=== PATIENT | male | born 1995 | race Caucasian/White ===

== ENCOUNTER → 2022-08-15 09:12 | Outpatient (BNVA) | payer BC, SELFPAY | PROVIDERS: Visit Provider Nurse Practitioner Family | DX: Z13.89 Encounter for screening for other disorder (principal) ==

== ENCOUNTER 2024-03-17 08:32 | Outpatient (AMB) | payer OTHER, SELFPAY ==
--- NOTE | 2024-03-17 08:22 | MHC.PC.OV ---
Vital Signs 03/17/24 08:39 Height 5 ft 9.29 in Weight 210 lb BMI 30.7 BP 112/80 Blood Pressure Location Rt brachial Position Sitting Respiration 16 Pulse 70 Pulse Source Pulse Oximeter Temp 97.8 F Temp Source Oral Pulse Oximetry (%) 99 Oxygen Delivery Method Room Air Intake Visit Reasons: ESTABLISH CARE Intake Note: New patient visit. Dry Sander Required: No Allergies No Known Allergies Allergy (Verified 03/17/24 08:22) Medication List - Last Reconciled 03/17/24 by LEIGHTON Vu Tobacco use date assessed: 03/17/24 Dental Screening Dental Screen Date: 03/17/24 Did you have a dental visit in the last 12 months?: No Did you have a dental problem in the last 6 months where you did not have access to dental care?: No Was dental information given to patient?: Patient has dentist HPI HPI Comments History of Present Illness Details 28-year-old male with migraine with aura (normal brain MRI 2021) generalized anxiety disorder, major depressive disorder, L3-L4 disc herniation [2019 s.p work injury], ADHD Status post wisdom teeth extraction, right thumb lac repair Hospital: [facility] 2019 back injury Social: 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 New patient. Medical records available to me today reviewed. ADHD was on focalin during childhood. Stopped this in high school. Was losing weight, this was the reason it was stopped. Does not recall any other meds for ADHD. Would like to restart as he is going back to school. Brings with him today the full psychiatrist assessment which was reviewed (done in 2007). MDD/BEATRIZ: denies any sx. Not active in counseling. This was situational. Migraines: well controlled. Thought related to job. Not taking any meds, no longer ffd by Neuro. Optho: Vision good, no corrective lenses. GI: no concerns Skin: dry skin right foot, present for months. Tried OTC tx w/o remedy. 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 Unsure of the details. Denies any current issues. Plan: Screening labs today. Include a urine toxicology, which was negative, we will restart Focalin XR 10mg and titrate to effect. Does not feel he needs meds for BEATRIZ or MDD, nor counseling. Does not need Neuro or Heme f/u @ this time. Topical steroid cream to skin on R foot PRN. If no improvement, consider Derm referral. Return to office in 4 weeks to follow up Focalin, sooner as needed PFSH Medical History (Updated 03/17/24 @ 12:43 by Ludy Butterfield END STAPLER-) Anxiety Depression Sleep difficulties Surgical History [place] teeth extracted History of circumcision Family History (Updated 03/17/24 @ 09:26 by Ana Jolly CMA) Mother Allergies Migraine Asthma Cardiovascular disease Clotting disorder Father Hodgkin disease Hemochromatosis Family/Other No problems noted. 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 1. Little interest or pleasure in doing things: more than half the days 2. Feeling down, depressed, or hopeless: not at all 3. Trouble falling or staying asleep, or sleeping too much: more than half the days 4. Feeling tired or having little energy: more than half the days 5. Poor appetite or overeating: several days 6. Feeling bad about yourself - or that you are a failure or have let yourself or your family down: not at all 7. Trouble concentrating on things, such as reading the newspaper or watching television: nearly every day 8. Moving or speaking so slowly that other people could have noticed. Or the opposite - being so fidgety or restless that you have been moving around a lot more than usual: not at all 9. Thoughts that you would be better off or of hurting yourself in some way: not at all Total score: 10 Depression Screening Interpretation: Positive Depression Screening Follow-up: Existing condition Depression Screening Done: Yes 92802 - PHQ-9 Billing: Yes Source: Developed by Drs. Jaime Estrella, Luisa Pickett, Wiley Figueroa and colleagues, with an educational ousmane from [employer]. Thrive Questionnaire Date Thrive assessed: 03/17/24 I am a: Patient What is your living situation today?: I have a steady place to live Within the past 12 months, did the food you bought not last and you didn't have the money to get more?: Never true Within the past 12 months, did you worry whether your food would run out before you got money to buy more?: Sometimes True Do you have trouble paying for medicines?: No Do you have trouble getting transportation to medical appointments?: No Do you have trouble paying your heating and electricity bill?: No Do you have trouble taking care of your child, family member or friend?: No Do you have trouble with day-to-day activities such as bathing, preparing meals, shopping, managing finances, etc.?: No Are you currently unemployed and looking for a job?: No Are you interested in more education?: Yes Please select the resources that you would like help with: Education Currently or been in a relationship where the following occur: No concerns reported THRIVE Score: 1 AUDIT C Alcohol Use Questionnaire (AUDIT-C) 1. How often do you have a drink containing alcohol?: 2-3 times a week 2. How many drinks containing alcohol do you have on a typical day when you are drinking?: 3 or 4 3. How often do you have six or more drinks on one occasion?: Less than monthly (Once every six months) Total Score: 5 Score Reviewed/Action Taken: Yes BEATRIZ-7 AMB Questionnaire BEATRIZ-7 Date BEATRIZ - 7 assessed: 03/17/24 Feeling nervous, anxious, or on edge: 1 = Several days Not being able to stop or control worryin = Not at all Worrying too much about different things: 0 = Not at all Trouble relaxin = More than half the days Being so restless that it is hard to sit still: 1 = Several days Becoming easily annoyed or irritable: 0 = Not at all Feeling afraid as if something awful might happen: 0 = Not at all Total BEATRIZ-7 score (0-4 normal; 5-9 mild; 10-14 moderate; 15-21 severe): 4 Source: Developed by Drs. Jaime Estrella, Luisa Pickett, Wiley Figueroa and colleagues, with an educational ousmane from [employer]. BEATRIZ-7 Assessment Billing BEATRIZ-7 Assessment Tool: BEATRIZ-7 Assessment 08834 Physical exam (Primary Care) Vital Signs: Last Vital Signs Temp 97.8 F 03/17/24 08:39 Pulse 70 03/17/24 08:39 Resp 16 03/17/24 08:39 BP 112/80 03/17/24 08:39 Pulse Ox 99 03/17/24 08:39 Oxygen Delivery Method Room Air 03/17/24 08:39 BMI result Body Mass Index 30.7 BMI Assessment/Plan discussion: High BMI High, discussed plan: lifestyle Tobacco/Smoking Status: Tobacco use Status Tobacco use date assessed 03/17/24 03/17/24 08:24 Patient Tobacco Use Status Never used Tobacco 03/17/24 08:24 e-Cigarette/Vaping Use Never Used 03/17/24 08:24 PHQ-9: PHQ-9 Score PHQ-9: Total score 10 03/17/24 09:26 Depression Screening Interpretation: Positive Depression Screening Follow-up: Existing condition Thrive Assessment: Date of Thrive Assessment Date Thrive assessed 03/17/24 03/17/24 09:26 Currently or been in a relationship where the following occur: No concerns reported Const Other: General: Well developed, well nourished, in no acute distress. Appears stated age. Head: Normocephalic, atraumatic. Eyes: Pupils are equal, round and reactive to light and accommodation. Conjunctivae are clear. Vision grossly normal. Ears: TMs clear AU, EACS WNL Nose: Patent, without discharge. Mouth: There are no ulcers or lesions noted. No inflammation, no post nasal drip, no plaques nor exudates. Neck: Supple, no adenopathy or thyromegaly. Lungs: Clear to auscultation bilaterally. No rales, rhonchi or wheeze noted. Good air flow in all gaspar. Heart: Regular rate and rhythm. No murmurs, click, rubs or gallops are noted. Abdomen: Bowel sounds present in all quadrants. The abdomen is soft, nontender, with no masses or organomegaly noted. No hernias are noted. Musculoskeletal: Joints are nontender, without swelling, redness, or effusions. Range of motion is observed to be normal. Pulses: Peripheral pulses are equal and palpable bilaterally. Extremities: No clubbing, cyanosis nor edema is noted. Neurologic: Gait and station normal. Cranial Nerves 2-12 intact. Motor strength grossly symmetrical and intact. No sensory loss. Balance normal. Skin: No ulcers, or lesions noted. Turgor is good. Skin color is good. Hair and nails are without abnormalities. Dorsum of right foot is a dry skin patch, similar skin patch noted on the medial aspect of the anterior ankle Psych: Normal eye contact, affect and mood appropriate, and normal interactions. Patient is alert and appropriate to context. Results Reviewed Results Reviewed: RUN: 03/17/24 1232 PAGE 1 [facility] [address] [place] [id number] Dock Clerk: Tez Tolliver M.D. Specimen Inquiry Name: Beka Chan Age/Sex: 28/M : 1995 Unit#: [id number] Attend Dr: Ludy Butterfield Re03/17/24 Status: REG REF Location: [facility] Disch: SPEC : [id number] SANDY: 03/17/24 STATUS: COMP REQ : [id number] RECD: 03/17/24-[address]: Ludy Butterfield COMP: 03/17/24-1223 ENTERED: 03/17/24 [facility] DR: ORDERED: Ur Drug Scrn Test Result Flag Reference Opiates, Ur Not Detected Not Detect Opiate cut-off is 300 ng/mL. Positive results are unconfirmed and should not be used for non-medical purposes. Barbiturate, Ur Not Detected Not Detect Barbiturate cut-off is 200 ng/mL. Positive results are unconfirmed and should not be used for non-medical purposes. PCP, Ur Not Detected Not Detect Phencyclidine cut-off is 25 ng/mL. Positive results are unconfirmed and should not be used for non-medical purposes. Amphetamine,Ur Not Detected Not Detect Amphetamine cut-off is 1000 ng/mL. Positive results are unconfirmed and should not be used for non-medical purposes. Benzodiazep,Ur Not Detected Not Detect Benzodiazepine cut-off is 200 ng/mL. Positive results are unconfirmed and should not be used for non-medical purposes. Cocaine, Ur Not Detected Not Detect Cocaine cut-off is 300 ng/mL. Positive results are unconfirmed and should not be used for non-medical purposes. Cannabinoid, Ur Not Detected Not Detect Cannabinoid cut-off is 50 ng/mL. Positive results are unconfirmed and should not be used for non-medical purposes. Ur Meth Scrn Not Detected Not Detect ng/mL Methadone cut-off is 300 ng/mL. Positive results are unconfirmed and should not be used for non-medical purposes. Fentanyl, ur Not Detected Not Detect Fentanyl cut-off is 1 ng/mL. Positive results are unconfirmed and should not be used for non-medical purposes. Oxycodone Urine Not Detected Not Detect ng/mL Oxycodone cut-off is 100 ng/mL. Positive results are unconfirmed and should not be used for non-medical purposes. Buprenorph Scr Not Detected Not Detect ng/mL Buprenorphine cut-off is 5 ng/mL. Positive results are unconfirmed and should not be used for non-medical purposes. END OF REPORT Assessment and Plan Assessment & Plan (1) Encounter for general adult medical examination without abnormal findings: Code(s): Z00.00 - Encounter for general adult medical examination without abnormal findings (2) BEATRIZ (generalized anxiety disorder): Code(s): F41.1 - Generalized anxiety disorder (3) MDD (major depressive disorder), recurrent episode: Code(s): F33.9 - Major depressive disorder, recurrent, unspecified Qualifiers: Major depression episode severity: mild Qualified Code(s): F33.0 - Major depressive disorder, recurrent, mild (4) Obesity (BMI 30-39.9): Code(s): E66.9 - Obesity, unspecified (5) Encounter for drug screening: Code(s): Z02.83 - Encounter for blood-alcohol and blood-drug test (6) ADHD: Comment: Neuropsych eval 2007 Code(s): F90.9 - Attention-deficit hyperactivity disorder, unspecified type Qualifiers: Attention deficit-hyperactivity disorder type: combined inattentive-hyperactive Qualified Code(s): F90.2 - Attention-deficit hyperactivity disorder, combined type (7) Migraine with aura: Comment: Migraine w/ brainstem aura MRI MRA 2021 WNL Code(s): G43.109 - Migraine with aura, not intractable, without status migrainosus Qualifiers: Status migrainosus presence: without status migrainosus Intractability: not intractable Qualified Code(s): G43.109 - Migraine with aura, not intractable, without status migrainosus (8) Dry skin dermatitis: Code(s): L85.3 - Xerosis cutis Orders: Orders Comprehensive [place]. Panel Fast Today Z00.00 - Encounter for general adult medical examination without abnormal findings Lipid Panel Today Z00.00 - Encounter for general adult medical examination without abnormal findings Complete Blood Count no Diff Today Z00.00 - Encounter for general adult medical examination without abnormal findings Vitamin B12 and Folate Today Z00.00 - Encounter for general adult medical examination without abnormal findings IRON PROFILE Today Z00.00 - Encounter for general adult medical examination without abnormal findings Hemoglobin A1c Today Z00.00 - Encounter for general adult medical examination without abnormal findings TSH reflex Free T4 Today Z00.00 - Encounter for general adult medical examination without abnormal findings Drug Screen Urine Today Z02.83 - Encounter for blood-alcohol and blood-drug test Medications: New dexmethylphenidate ER (Focalin XR) Partial Fill upon patient request. 10 mg PO DAILY 30 caps 0RF hydrocortisone 2.5% 1 appl topical BID PRN 28 grams 1RF skin irritation Patient Instructions: Walk-In Care (Urgent Care): We Make it Easy Walk-in for urgent medical issues such as: ? Seasonal Allergies ? Insect Bites ? Cough ? Diarrhea ? Acute Asthma Attacks ? Back, Knee or Joint Pain ? Ear Infection ? Fever without a Rash ? Headaches ? Nausea ? [place] Eye, Rash or Skin Irritation ? Sore Throat ? Sports Physicals ? Vomiting Most insurances are accepted. Patients do not need to be part of the [facility] to seek care at the walk-in clinic. Locations [address] [place] [place] [address] ? [phone] [facility] Walk-In Care in [place] provides services to ages 18 and over. Open Sunday-Sunday: 8 a.m. to 5 p.m. and Sunday: 9 a.m. to 3 p.m.* *Hours may vary due to staffing availability. To confirm Walk-In Care hours in [place], please call [phone]. [address] [place] [address] ? [phone] [facility] Walk-In Care in [place] provides services to ages 12 and over. Open Sunday-Sunday: 8 a.m. to 5 p.m. Hours may vary due to staffing availability. To confirm Walk-In Care hours in [place], please call [phone]. LABORATORY SERVICES: [facility] ? Primary Location [address] [place] [address] Sunday through Sunday 6:00 AM ? 5:00 PM Sunday 7:00 AM ? 11:00 AM* [phone] The [facility] is centrally located near the front entrance of the [facility] for easy outpatient access. Convenient parking is provided for outpatients. *Hours may vary due to staffing availability. To confirm Laboratory hours for any location, please call [phone]. Offsite Location For your convenience, we offer offsite laboratory draw stations at the following locations: [address] [place] [address] ? [address], [address] Sunday through Sunday 7:30 AM ? 1:00 PM* [phone] *Hours may vary due to staffing availability. To confirm Laboratory hours for any location, please call [phone]. [place] ? [address] Sunday through Sunday 6:00 AM ? 3:30 PM* Sunday 6:30 AM ? 3 PM* [phone] *Hours may vary due to staffing availability. To confirm Laboratory hours for any location, please call [phone] [place] [address] Sunday through Sunday 7:30 AM ? 4:00 PM* [phone] *Hours may vary due to staffing availability. To confirm Laboratory hours for any location, please call [phone] [place] [address] Sunday through 9:00 AM ? 4:00 PM* *Hours may vary due to staffing availability. To confirm Laboratory hours for any location, please call [phone]. Appointments are not necessary. Walk-ins are welcome. Like all the departments throughout the [facility], our Lab undergoes frequent reviews to ensure the quality and accuracy of test results, and our staff takes special pride in its status as a nationally accredited facility. Patient Portal: ONE PATIENT. ONE RECORD. BETTER CARE. [facility] has a fully integrated, cutting-edge mobile electronic health information system that has revolutionized the way we care for our patients and manage our organization. This system improves communication and coordination enabling us to provide safe, higher-quality care, and an overall positive experience for staff and patients. Our first priority, as always, is to deliver the highest quality care possible. The system is running in the background supporting that priority. This portal is for all [facility] services and practices. If you are experiencing any technical difficulties with enrolling or logging into the Patient Portal please complete the [facility] Technical Support Form. [facility] now offers a new secure on-line interactive tool for patients to review their health information ? ?Patient Portal. This interactive web portal will enable patients and their families to take an active role in their care by providing easy, secure access to their health information via the internet. The Patient Portal provides patients with instant access to their health information, including laboratory results, medications, allergies, demographic information, visit history, and more. In addition to managing their own care, parents and health care proxies with authorized consent will appreciate the ability to access the records of those individuals for whom they provide care. Please note: if you wish to gain access (Proxy) to another patient?s portal, you will be required to come to the Medical Records Department in person at [facility]. Both the patient giving proxy access and the proxy will need to provide photo identification and complete the appropriate authorization. The Patient Portal also allows track their appointments online. The [facility] Patient Portal also saves patients time by allowing them to submit updates to their demographic and contact information prior to their visits. Portal email notifications will also alert patients to any new activity on their portal, such as test results and new appointments. In order to initially enroll in the [facility] Patient Portal, you will need to enter some required information including the following: your [facility] Medical Record number your personal home email address name date of Please note: In order to enroll in the [facility] Patient Portal, we need to have your email address on file in your electronic medical record. ?The email address needs to be specific for one person (yourself) in order for your Portal enrollment to be successful. ?You can update your email address in person with our Registration staff when you are registering for a hospital visit. ?Otherwise, you will need to come to the Health Information Management (Medical Records) Department at [facility]. ?We are open from Sunday ? Sunday from 7:30 a.m. ? 4:30 p.m. ?You will be required to present a photo id. Once you have successfully enrolled in the Patient Portal, you will receive a one-time user id and password for the Portal, sent to your email address. ?This will allow you to log into the Patient Portal within 99 hrs and reset your own logon id and password, and define personal security questions. ?Once your permanent login and password have been set, you can log into the [facility] Patient Portal at any time via the blue button above or from the Portal Logon button on any page of the [facility] website. [facility] encourage all of our patients to enroll in Patient Portal as it presents a valuable opportunity for patients and their families to actively participate in their care and stay healthy Welcome to [facility]. ?We look forward to working with you. Health screenings for men ages 40 to 64 You should visit your health care provider regularly, even if you feel healthy. The purpose of these visits is to: Screen for medical issues Assess your risk for future medical problems Encourage a healthy lifestyle Update vaccinations and other preventive care services Help you get to know your provider in case of an illness Information Even if you feel fine, you should still see your provider for regular checkups. These visits can help you avoid problems in the future. For example, the only way to find out if you have high blood pressure is to have it checked regularly. High blood sugar and high cholesterol level also may not have any symptoms in the early stages. Simple blood tests can check for these conditions. There are specific times when you should see your provider or receive specific health screenings. The [place] Preventive Services Task Force publishes a list of recommended screenings. Below are screening guidelines for men ages 40 to 64. BLOOD PRESSURE SCREENING Have your blood pressure checked at least once every year. Watch for blood pressure screenings in your area. Ask your provider if you can stop in to have your blood pressure checked. Ask your provider if you need your blood pressure checked more often if: You have diabetes, heart disease, kidney problems, or are overweight or have certain other health conditions You have a first-degree relative with high blood pressure You are Black Your blood pressure top number is from 120 to 129 mm Hg, or the bottom number is from 70 to 79 mm Hg If the top number is 130 mm Hg or greater or the bottom number is 80 mm Hg or greater, this is considered stage 1 hypertension. Schedule an appointment with your provider to learn how you can lower your blood pressure. Effects of age on blood pressure CHOLESTEROL SCREENING Cholesterol screening should begin at age 35 for men with no known risk factors for coronary heart disease. Repeat cholesterol screening should take place: Every 5 years for men with normal cholesterol levels More often if changes occur in lifestyle (including weight gain and diet) More often if you have diabetes, heart disease, kidney problems, or certain other conditions COLORECTAL CANCER SCREENING If you are under age 45, talk to your provider about getting screened. You may need to be screened if you have a strong family history of colon cancer or polyps. Screening may also be considered if you have risk factors such as a history of inflammatory bowel disease or polyps. If you are age 45 to 75, you should be screened for colorectal cancer. There are several screening tests available: A stool-based fecal occult blood (gFOBT) or fecal immunochemical test (FIT) every year A stool sDNA test every 1 to 3 years Flexible sigmoidoscopy every 5 years or every 10 years with stool testing FIT done every year CT colonography (virtual colonoscopy) every 5 years Colonoscopy every 10 years You may need a colonoscopy more often if you have risk factors for colorectal cancer, such as: Ulcerative colitis A personal or family history of colorectal cancer A history of growths in your colon called adenomatous polyps DENTAL EXAM Go to the dentist once or twice every year for an exam and cleaning. Your dentist will evaluate if you have a need for more frequent visits. DIABETES SCREENING All adults who do not have risk factors for diabetes should be screened starting at age 35 and repeated every 3 years. If you have other risk factors for diabetes, such as a first degree relative with diabetes, overweight or obesity, high blood pressure, prediabetes, or a history of heart disease, you may be tested more often. If you are overweight and have other risk factors, such as high blood pressure and are planning to become , screening is recommended. EYE EXAM Have an eye exam every 2 to 4 years ages 40 to 54 and every 1 to 3 years ages 55 to 64. Your provider may recommend more frequent eye exams if you have vision problems or glaucoma risk. Have an eye exam that includes an examination of your retina (back of your eye) at least every year if you have diabetes. IMMUNIZATIONS Commonly needed vaccines include: Flu shot: get one every year COVID-19 vaccine: ask your provider what is best for you Tetanus-diphtheria and acellular pertussis (Tdap) vaccine: have as one of your tetanus-diphtheria vaccines if you did not receive it as an adolescent Tetanus-diphtheria: have a booster (or Tdap) every 10 years Varicella vaccine: receive 2 doses if you never had chickenpox or the varicella vaccine and were born in 1979 or after Hepatitis B vaccine: receive 2, 3, or 4 doses, depending on your exact circumstances, if you did not receive these as a child or adolescent, until age 59 Shingles (herpes zoster) vaccine: at or after age 50 Ask your provider if you should receive other immunizations, especially if you have certain medical conditions, such as diabetes or are at increased risk for some diseases such as pneumonia. INFECTIOUS DISEASE SCREENING Screening for hepatitis C: all adults ages 18 to 79 should get a one-time test for hepatitis C. Screening for human immunodeficiency virus (HIV): all people ages 15 to 65 should get a one-time test for HIV. Depending on your lifestyle and medical history, you may need to be screened for infections such as syphilis, chlamydia, and other infections. LUNG CANCER SCREENING You should have an annual screening for lung cancer with low-dose computed tomography (LDCT) if: You are age 50 to 80 years AND You have a 20 pack-year smoking history AND You currently smoke or have quit within the past 15 years OSTEOPOROSIS SCREENING If you are age 50 to 64 and have risk factors for osteoporosis, you should discuss screening with your provider. Risk factors can include long-term steroid use, low body weight, smoking, heavy alcohol use, having a fracture after age 50, or a family history of hip fracture or osteoporosis. Osteoporosis PHYSICAL EXAM All adults should visit their provider from time to time, even if they are healthy. The purpose of these visits is to: Screen for diseases Assess risk of future medical problems Encourage a healthy lifestyle Update vaccinations and other preventive care services Maintain a relationship with a provider in case of an illness Your height, weight, and body mass index (BMI) should be checked at every exam. During your exam, your provider may ask you about: Depression and anxiety Diet and exercise Alcohol and tobacco use Safety, such as use of seat belts and smoke detectors Your medicines and risk for interactions PROSTATE CANCER SCREENING If you're 55 through 69 years old, before having the test, talk to your provider about the pros and cons of having a PSA test. Ask about: Whether screening decreases your chance of dying from prostate cancer. Whether there is any harm from prostate cancer screening, such as side effects from testing or overtreatment of cancer when discovered. Whether you have a higher risk of prostate cancer than others. If you are age 55 or younger, screening is not generally recommended. You should talk with your provider about if you have a higher risk for prostate cancer. Risk factors include: Having a family history of prostate cancer (especially a brother or father) Being If you choose to be tested, the PSA blood test is repeated over time (yearly or less often), though the best frequency is not known. Prostate examinations are no longer routinely done on men with no symptoms. Prostate cancer SKIN EXAM Your provider may check your skin for signs of skin cancer, especially if you're at high risk. People at high risk include those who have had skin cancer before, have close relatives with skin cancer, or have a weakened immune system. TESTICULAR EXAM The [place] Preventive Services Task Force (USPSTF) now recommends against performing testicular self-exams. Doing testicular self-exams has been shown to have little to no benefit. Patient is aware they are being prescribed a controlled substance. They were educated that this medication does require routine monthly office visits to monitor weight, blood pressure, heart rate and to screen for any signs of abuse or misuse. They were educated that they may be subject to random pill counts and/or U tox screenings. The prescription drug monitoring program we will be monitored at each visit to further screen for signs of abuse or misuse to include filling prescriptions at other physician's offices. The patient should maintain prescription refills of the same local pharmacy and advised the provider of any changes immediately. If at any time there is a concern for abuse or misuse or if there are any signs of side effects such as elevated blood pressure, elevated heart rate or weight loss patient is made aware that this medication will be discontinued. The patient is aware of the above and is willing to proceed. Coding Level of Care Code New Pt Prev Care 18-39yr(73458 Diagnoses Encounter for general adult medical examination without abnormal findings Z00.00 BEATRIZ (generalized anxiety disorder) F41.1 Mild episode of recurrent major depressive disorder F33.0 Major depression episode severity: mild Obesity (BMI 30-39.9) E66.9 Encounter for drug screening Z02.83 Attention deficit hyperactivity disorder (ADHD), combined type F90.2 Attention deficit-hyperactivity disorder type: combined inattentive-hyperactive Migraine with aura and without status migrainosus, not intractable G43.109 Status migrainosus presence: without status migrainosus Intractability: not intractable Dry skin dermatitis L85.3 Additional Codes BEATRIZ-7 Assessment Billing - BEATRIZ-7 Assessment Tool: BEATRIZ-7 Assessment 38435 ([id number])
[2024-03-17 08:39] VITALS: BP 112/80; PULSE 70; RESP 16; TEMP 36.6; O2SAT 99; BMI 30.7
== END 2024-03-17 09:36 | disposition home or self-care (01) ==
PROVIDERS: PCP Nurse Practitioner Family; Visit Provider Nurse Practitioner Family
DX: Z00.00 Encounter for general adult medical examination without abnormal findings (principal); F33.0 Major depressive disorder, recurrent, mild; E66.9 Obesity, unspecified; Z68.30 Body mass index [BMI] 30.0-30.9, adult; F41.1 Generalized anxiety disorder; Z02.83 Encounter for blood-alcohol and blood-drug test; F90.2 Attention-deficit hyperactivity disorder, combined type; G43.109 Migraine with aura, not intractable, without status migrainosus; L85.3 Xerosis cutis
CPT/HCPCS: 99385

== ENCOUNTER 2024-03-17 09:15 | Outpatient (REF) | payer OTHER, SELFPAY ==
[2024-03-17 11:32] LABS: Hematocrit 45.8 % (42.0-52.0); Hemoglobin 16.2 g/dl (14.0-18.0); Mean Corpuscular HGB Conc 35.4 g/dl (31.0-36.0); Mean Corpuscular Hemoglobin 30.6 pg (27.0-33.0); Mean Corpuscular Volume 86.6 fL (80.0-98.0); Mean Platelet Volume 11.8 fL (9.4-12.4); Platelet Count 214 X10*3/uL (160-400); Red Blood Count 5.29 X10*6/uL (4.60-5.80); Red Cell Distribution Width 12.2 % (11.0-16.0); White Blood Count 6.9 X10*3/uL (4.8-10.8)
[2024-03-17 11:48] LABS: Estimated Average Glucose 100 mg/dL; Hemoglobin A1c % 5.1 % (<6.0)
[2024-03-17 12:02] LABS: Alanine Aminotransferase 51 U/L (0-40); Albumin Level 4.7 g/dL (3.5-5.0); Alkaline Phosphatase 78 U/L (39-117); Anion Gap 11 (12-20); Aspartate Amino Transferase 25 U/L (5-37); Bilirubin Total 0.6 mg/dL (0.0-1.0); Blood Urea Nitrogen 10 mg/dL (9-16); Calcium 9.6 mg/dL (8.4-10.2); Carbon Dioxide 27 mmol/L (22-29); Chloride 105 mmol/L (96-108); Cholesterol 146 mg/dL (<200); Estimated Glomerular Filt Rate > 60; Glucose Fasting 114 mg/dL (60-99); HDL Cholesterol 43 mg/dL (>40); Iron 93 mcg/dL (45-160); LDL Cholesterol Calculated 84 mg/dL (<100); Percent Iron Saturation 30 % (15-50); Potassium 4.1 mmol/L (3.3-5.1); Sodium 139 mmol/L (135-145); Total Iron Binding Capacity 309 mcg/dL (228-428); Total Protein 7.4 g/dL (6.5-8.0); Triglycerides 99 mg/dL (<150); Unsaturated Iron Binding 216 ug/dL
[2024-03-17 12:08] LABS: TSH reflex Free T4 1.76 uIU/mL (0.32-4.0)
[2024-03-17 12:20] LABS: Folate 6.7 ng/mL (> or = 4.0); Vitamin B12 359 pg/mL (200-900)
[2024-03-17 12:23] LABS: Amphetamine Screen Urine Not Detected (Not Detect); Barbiturates, Urine Not Detected (Not Detect); Benzodiazepines Screen Urine Not Detected (Not Detect); Buprenorphine Scr Not Detected (Not Detect); Cannabinoid Screen Urine Not Detected (Not Detect); Cocaine Screen Urine Not Detected (Not Detect); Fentanyl, urine Not Detected (Not Detect); Methadone Screen, Urine Not Detected (Not Detect); Opiate Screen Urine Not Detected (Not Detect); Oxycodone Screen Urine Not Detected (Not Detect); Phencyclidine Screen Urine Not Detected (Not Detect)
== END 2024-03-17 09:16 | disposition home or self-care (01) ==
LOC: HO.WFDLDS 09:15
PROVIDERS: Visit Provider Nurse Practitioner Family
DX: Z00.00 Encounter for general adult medical examination without abnormal findings (principal); Z02.83 Encounter for blood-alcohol and blood-drug test
CPT/HCPCS: 80053; 80061; 80307; 82607; 82746; 83036; 83540; 84443; 85027

== ENCOUNTER 2024-04-11 08:41 | Outpatient (AMB) | payer OTHER, SELFPAY ==
--- NOTE | 2024-04-11 08:42 | MHC.PC.OV ---
Vital Signs 04/11/24 08:46 Height 5 ft 10 in Weight 211 lb 6 oz BMI 30.3 BP 122/72 Blood Pressure Location Rt brachial Position Sitting Respiration 15 Pulse 66 Pulse Source Pulse Oximeter Pulse Oximetry (%) 97 Oxygen Delivery Method Room Air Intake Visit Reasons: follow up Intake Note: follow up on medication Allergies No Known Allergies Allergy (Verified 04/11/24 09:05) Medication List - Last Reconciled 04/11/24 by ODMINIK Vu-NENA dexmethylphenidate ER (Focalin XR) 10 mg PO DAILY hydrocortisone 2.5% 1 appl topical BID PRN Tobacco use date assessed: 03/17/24 Dental Screening Dental Screen Date: 03/17/24 HPI HPI Comments History of Present Illness Details 28-year-old male with migraine with aura (normal brain MRI 2021) generalized anxiety disorder, major depressive disorder, L3-L4 disc herniation [2019 s.p work injury], ADHD Status post wisdom teeth extraction, right thumb lac repair Hospital: [facility] 2019 back injury Social: 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 taking every day in the AM, around [id number]. Helping him focus for a few hours. Feels wears off around [id number]. Sleeping well. Appetite good. Wt stable. No uptic in anxiety. Exam: Awake alert NAD RRR LS CTAB Mood and affect approriate Plan: Increase focalin from 10mg to 20mg QD. Return to office in 4 weeks to follow up Focalin increase, sooner as needed. [facility] Medical History (Updated 03/17/24 @ 12:43 by DOMINIK Vu-NENA) Anxiety Depression Sleep difficulties Surgical History [place] teeth extracted History of circumcision Family History (Updated 03/17/24 @ 09:26 by Ana Jolly CMA) Mother Allergies Migraine Asthma Cardiovascular disease Clotting disorder Father Hodgkin disease Hemochromatosis Family/Other No problems noted. 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 Jaime Estrella, Luisa Pickett, Wiley Figueroa and colleagues, with an educational ousmane from [employer]. Physical exam (Primary Care) Vital Signs: Last Vital Signs Pulse 66 04/11/24 08:46 Resp 15 04/11/24 08:46 BP 122/72 04/11/24 08:46 Pulse Ox 97 04/11/24 08:46 Oxygen Delivery Method Room Air 04/11/24 08:46 BMI result Body Mass Index 30.3 Tobacco/Smoking Status: Tobacco use Status Tobacco use date assessed 03/17/24 04/11/24 08:47 Patient Tobacco Use Status Never used Tobacco 04/11/24 08:47 e-Cigarette/Vaping Use Never Used 04/11/24 08:47 Thrive Assessment: Date of Thrive Assessment Date Thrive assessed 03/17/24 04/11/24 08:47 Assessment and Plan Assessment & Plan (1) ADHD: Comment: Neuropsych evthomas 2007 Code(s): F90.9 - Attention-deficit hyperactivity disorder, unspecified type Qualifiers: Attention deficit-hyperactivity disorder type: combined inattentive-hyperactive Qualified Code(s): F90.2 - Attention-deficit hyperactivity disorder, combined type Medications: New dexmethylphenidate ER (Focalin XR) Partial Fill upon patient request. 20 mg PO DAILY 30 caps 0RF Discontinued dexmethylphenidate ER (Focalin XR) Partial Fill upon patient request. Discontinued Reason: Doctor's Order 10 mg PO DAILY 30 caps 0RF Coding Level of Care Code Est Pt Level 3 (66132) Diagnoses Attention deficit hyperactivity disorder (ADHD), combined type F90.2 Attention deficit-hyperactivity disorder type: combined inattentive-hyperactive
[2024-04-11 08:46] VITALS: BP 122/72; PULSE 66; RESP 15; O2SAT 97; BMI 30.3
== END 2024-04-11 09:13 | disposition home or self-care (01) ==
PROVIDERS: PCP Nurse Practitioner Family; Visit Provider Nurse Practitioner Family
DX: F90.2 Attention-deficit hyperactivity disorder, combined type (principal)
CPT/HCPCS: 99213

== ENCOUNTER 2024-05-07 08:30 | Outpatient (AMB) | payer OTHER, SELFPAY ==
--- NOTE | 2024-05-07 08:33 | A.OFFPC_ITS ---
Vital Signs 05/07/24 08:39 Height 5 ft 10 in Weight 212 lb 8 oz BMI 30.5 BP 138/78 Blood Pressure Location Rt brachial Position Sitting Respiration 15 Pulse 90 Pulse Source Pulse Oximeter Pulse Oximetry (%) 96 Oxygen Delivery Method Room Air Intake Visit Reasons: 4-6 weeks 30min fu BED/BEATRIZ Intake Note: follow up Allergies No Known Allergies Allergy (Verified 05/07/24 09:14) Medication List - Last Reconciled 05/07/24 by DOMINIK Vu-NENA dexmethylphenidate ER (Focalin XR) 20 mg PO DAILY hydrocortisone 2.5% 1 appl topical BID PRN Tobacco use date assessed: 03/17/24 Dental Screening Dental Screen Date: 03/17/24 HPI HPI Comments History of Present Illness Details 28-year-old male with migraine with aura (normal brain MRI 2021) generalized anxiety disorder, major depressive disorder, L3-L4 disc herniation [2019 s.p work injury], ADHD Here today for 4 week fu ADHD after increasing Focalin XR He is taking 20 mg daily in the morning. While he does state that it works better, he continues to state that it does not last long enough, although it does last longer than the 10 mg. He feels like it wears off around 16:00 to 17:00. He states that the benefits of taking this is that he feels very focused in his able to keep up with class work. He denies any side effects. Reports that his mood is stable. Denies any insomnia. Reports stable appetite. Exam: Awake alert NAD RRR LS CTAB Mood and affect approriate Plan: Increase Focalin XR from 20mg to 30mg. Ok to stop 20 now and start 30 if insurance allows. Do not take any more than 30mg/day RTO 1 month for recheck. This note is constructed using voice recognition software. While every effort has been made to ensure accuracy in java software architect, still errors may have been included Sometimes, these errors may affect the content or meaning of the given sentence . [facility] Medical History (Updated 03/17/24 @ 12:43 by DOMINIK Vu-NENA) Anxiety Depression Sleep difficulties Surgical History [place] teeth extracted History of circumcision Family History (Updated 08/05/24 @ 09:26 by Ana Jolly CMA) Mother Allergies Migraine Asthma Cardiovascular disease Clotting disorder Father Hodgkin disease Hemochromatosis Family/Other No problems noted. 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 1. Little interest or pleasure in doing things: not at all 2. Feeling down, depressed, or hopeless: not at all 3. Trouble falling or staying asleep, or sleeping too much: not at all 4. Feeling tired or having little energy: not at all 5. Poor appetite or overeating: several days 6. Feeling bad about yourself - or that you are a failure or have let yourself or your family down: not at all 7. Trouble concentrating on things, such as reading the newspaper or watching television: several days 8. Moving or speaking so slowly that other people could have noticed. Or the opposite - being so fidgety or restless that you have been moving around a lot more than usual: not at all 9. Thoughts that you would be better off or of hurting yourself in some way: not at all Total score: 2 37812 - PHQ-9 Billing: Yes Source: Developed by Drs. Jaime Estrella, Luisa Pickett, Wiley Figueroa and colleagues, with an educational ousmane from [employer]. Thrive Questionnaire Date Thrive assessed: 03/17/24 AUDIT C Alcohol Use Questionnaire (AUDIT-C) 1. How often do you have a drink containing alcohol?: 2-3 times a week 2. How many drinks containing alcohol do you have on a typical day when you are drinking?: 1 or 2 3. How often do you have six or more drinks on one occasion?: Never Total Score: 3 BEATRIZ-7 AMB Questionnaire BEATRIZ-7 Date BEATRIZ - 7 assessed: 05/07/24 Feeling nervous, anxious, or on edge: 0 = Not at all Not being able to stop or control worryin = Not at all Worrying too much about different things: 0 = Not at all Trouble relaxin = Several days Being so restless that it is hard to sit still: 0 = Not at all Becoming easily annoyed or irritable: 0 = Not at all Feeling afraid as if something awful might happen: 0 = Not at all Total BEATRIZ-7 score (0-4 normal; 5-9 mild; 10-14 moderate; 15-21 severe): 1 Source: Developed by Drs. Jaime Estrella, Luisa Pickett, Wiley Figueroa and colleagues, with an educational ousmane from [employer] App. BEATRIZ-7 Assessment Billing BEATRIZ-7 Assessment Tool: BEATRIZ-7 Assessment [id number] Physical exam (Primary Care) Vital Signs: Last Vital Signs Pulse 90 05/07/24 08:39 Resp 15 05/07/24 08:39 BP 138/78 05/07/24 08:39 Pulse Ox 96 05/07/24 08:39 Oxygen Delivery Method Room Air 05/07/24 08:39 BMI result Body Mass Index 30.5 Tobacco/Smoking Status: Tobacco use Status Tobacco use date assessed 03/17/24 05/07/24 08:34 Patient Tobacco Use Status Never used Tobacco 05/07/24 08:34 e-Cigarette/Vaping Use Never Used 05/07/24 08:34 PHQ-9: PHQ-9 Score PHQ-9: Total score 2 05/07/24 09:14 Thrive Assessment: Date of Thrive Assessment Date Thrive assessed 03/17/24 05/07/24 08:34 Assessment and Plan Assessment & Plan (1) ADHD: Comment: Neuropsych eval 2007 Code(s): F90.9 - Attention-deficit hyperactivity disorder, unspecified type Qualifiers: Attention deficit-hyperactivity disorder type: combined inattentive- hyperactive Qualified Code(s): F90.2 - Attention-deficit hyperactivity disorder, combined type (2) BEATRIZ (generalized anxiety disorder): Code(s): F41.1 - Generalized anxiety disorder (3) MDD (major depressive disorder), recurrent episode: Code(s): F33.9 - Major depressive disorder, recurrent, unspecified Qualifiers: Major depression episode severity: mild Qualified Code(s): F33.0 - Major depressive disorder, recurrent, mild Medications: New dexmethylphenidate ER (Focalin XR) Partial Fill upon patient request. 30 mg PO DAILY 30 caps 0RF Discontinued dexmethylphenidate ER (Focalin XR) Partial Fill upon patient request. Discontinued Reason: Doctor's Order 20 mg PO DAILY 30 caps 0RF Coding Level of Care Code Est Pt Level 3 (20702) Complex EM visit Add On G2211 Diagnoses Attention deficit hyperactivity disorder (ADHD), combined type F90.2 Attention deficit-hyperactivity disorder type: combined inattentive- hyperactive BEATRIZ (generalized anxiety disorder) F41.1 Mild episode of recurrent major depressive disorder F33.0 Major depression episode severity: mild Additional Codes BEATRIZ-7 Assessment Billing - BEATRIZ-7 Assessment Tool: BEATRIZ-7 Assessment 95856 ([id number])
[2024-05-07 08:39] VITALS: BP 138/78; PULSE 90; RESP 15; O2SAT 96; BMI 30.5
== END 2024-05-07 09:20 | disposition home or self-care (01) ==
PROVIDERS: PCP Nurse Practitioner Family; Visit Provider Nurse Practitioner Family
DX: F90.2 Attention-deficit hyperactivity disorder, combined type (principal); F41.1 Generalized anxiety disorder; F33.0 Major depressive disorder, recurrent, mild

== ENCOUNTER → 2024-05-07 08:30 | Outpatient (BNVA) | payer OTHER, SELFPAY | PROVIDERS: PCP Nurse Practitioner Family; Visit Provider Nurse Practitioner Family | DX: F90.2 Attention-deficit hyperactivity disorder, combined type (principal); F41.1 Generalized anxiety disorder; F33.0 Major depressive disorder, recurrent, mild | CPT/HCPCS: 96127; 99212 ==

== ENCOUNTER 2024-06-03 09:03 | Outpatient (AMB) | payer OTHER, SELFPAY ==
--- NOTE | 2024-06-03 09:04 | MHC.PC.OV ---
Vital Signs 06/03/24 09:13 Height 5 ft 10 in Weight 215 lb 2 oz BMI 30.9 BP 120/70 Blood Pressure Location Lt brachial Position Sitting Respiration 14 Pulse 63 Pulse Source Pulse Oximeter Pulse Oximetry (%) 98 Oxygen Delivery Method Room Air Intake Visit Reasons: 1 month med check Intake Note: one month med check Allergies No Known Allergies Allergy (Verified 06/03/24 09:26) Medication List - Last Reconciled 06/03/24 by DOMINIK Vu-NENA dexmethylphenidate ER (Focalin XR) 30 mg PO DAILY hydrocortisone 2.5% 1 appl topical BID PRN Tobacco use date assessed: 03/17/24 Dental Screening Dental Screen Date: 03/17/24 HPI HPI Comments History of Present Illness Details 29-year-old male with migraine with aura (normal brain MRI 2021) generalized anxiety disorder, major depressive disorder, L3-L4 disc herniation [2019 s.p work injury], ADHD Status post wisdom teeth extraction, right thumb lac repair Hospital: [facility] 2019 back injury Social: 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 Feels this is working very well. Able to maintain focus throughout the day. No longer feeling like it is wearing off. Sleeping well. Appetite good. Wt stable. No uptic in anxiety. Mood stable. Would like to cont same dose Exam: Awake alert NAD RRR LS CTAB Mood and affect approriate Plan: Cont focalin XR 30mg QD. Return to office in 3 mo for follow up Focalin, sooner PRN PFSH Medical History (Updated 03/17/24 @ 12:43 by DOMINIK Vu-NENA) Anxiety Depression Sleep difficulties Surgical History [place] teeth extracted History of circumcision Family History (Updated 03/17/24 @ 09:26 by Ana Jolly CMA) Mother Allergies Migraine Asthma Cardiovascular disease Clotting disorder Father Hodgkin disease Hemochromatosis Family/Other No problems noted. 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 1. Little interest or pleasure in doing things: not at all 2. Feeling down, depressed, or hopeless: not at all 3. Trouble falling or staying asleep, or sleeping too much: not at all 4. Feeling tired or having little energy: not at all 5. Poor appetite or overeating: not at all 6. Feeling bad about yourself - or that you are a failure or have let yourself or your family down: not at all 7. Trouble concentrating on things, such as reading the newspaper or watching television: not at all 8. Moving or speaking so slowly that other people could have noticed. Or the opposite - being so fidgety or restless that you have been moving around a lot more than usual: not at all 9. Thoughts that you would be better off or of hurting yourself in some way: not at all Total score: 0 33546 - PHQ-9 Billing: Yes Source: Developed by Drs. Jaime Estrella, Liusa Pickett, Wiley Figueroa and colleagues, with an educational ousmane from [employer]. Thrive Questionnaire Date Thrive assessed: 06/03/24 I am a: Patient What is your living situation today?: I have a steady place to live Within the past 12 months, did the food you bought not last and you didn't have the money to get more?: Never true Within the past 12 months, did you worry whether your food would run out before you got money to buy more?: Never true Do you have trouble paying for medicines?: No Do you have trouble getting transportation to medical appointments?: No Do you have trouble paying your heating and electricity bill?: No Do you have trouble taking care of your child, family member or friend?: No Do you have trouble with day-to-day activities such as bathing, preparing meals, shopping, managing finances, etc.?: No Are you currently unemployed and looking for a job?: No Are you interested in more education?: No Please select the resources that you would like help with: None Currently or been in a relationship where the following occur: No concerns reported THRIVE Score: 0 AUDIT C Alcohol Use Questionnaire (AUDIT-C) 1. How often do you have a drink containing alcohol?: 2-4 times a month 2. How many drinks containing alcohol do you have on a typical day when you are drinking?: 1 or 2 3. How often do you have six or more drinks on one occasion?: Less than monthly Total Score: 3 BEATRIZ-7 AMB Questionnaire BEATRIZ-7 Date BEATRIZ - 7 assessed: 06/03/24 Feeling nervous, anxious, or on edge: 0 = Not at all Not being able to stop or control worryin = Not at all Worrying too much about different things: 0 = Not at all Trouble relaxin = Not at all Being so restless that it is hard to sit still: 0 = Not at all Becoming easily annoyed or irritable: 0 = Not at all Feeling afraid as if something awful might happen: 0 = Not at all Total BEATRIZ-7 score (0-4 normal; 5-9 mild; 10-14 moderate; 15-21 severe): 0 Source: Developed by Drs. Jaiem Estrella, Luisa Pickett, Wiley Figueroa and colleagues, with an educational ousmane from [employer]. BEATRIZ-7 Assessment Billing BEATRIZ-7 Assessment Tool: BEATRIZ-7 Assessment 40838 Physical exam (Primary Care) Vital Signs: Last Vital Signs Pulse 63 06/03/24 09:13 Resp 14 06/03/24 09:13 BP 120/70 06/03/24 09:13 Pulse Ox 98 06/03/24 09:13 Oxygen Delivery Method Room Air 06/03/24 09:13 BMI result Body Mass Index 30.9 Tobacco/Smoking Status: Tobacco use Status Tobacco use date assessed 03/17/24 06/03/24 09:05 Patient Tobacco Use Status Never used Tobacco 06/03/24 09:05 e-Cigarette/Vaping Use Never Used 06/03/24 09:05 PHQ-9: PHQ-9 Score PHQ-9: Total score 0 06/03/24 09:26 Thrive Assessment: Date of Thrive Assessment Date Thrive assessed 06/03/24 06/03/24 09:13 Currently or been in a relationship where the following occur: No concerns reported Coding Level of Care Code Est Pt Level 3 (44654) Complex EM visit Add On G2211 Diagnoses Attention deficit hyperactivity disorder (ADHD), combined type F90.2 Attention deficit-hyperactivity disorder type: combined inattentive-hyperactive Additional Codes BEATRIZ-7 Assessment Billing - BEATRIZ-7 Assessment Tool: BEATRIZ-7 Assessment 07568 ([id number]) Assessment & Plan Assessment & Plan (1) ADHD: Comment: Neuropsych eval 2007 Code(s): F90.9 - Attention-deficit hyperactivity disorder, unspecified type Category: Medical Qualifiers: Attention deficit-hyperactivity disorder type: combined inattentive-hyperactive Qualified Code(s): F90.2 - Attention-deficit hyperactivity disorder, combined type Plan: . Plan . Medications: Refilled dexmethylphenidate ER (Focalin XR) Partial Fill upon patient request. 30 mg PO DAILY 30 caps 0RF
[2024-06-03 09:13] VITALS: BP 120/70; PULSE 63; RESP 14; O2SAT 98; BMI 30.9
== END 2024-06-03 09:37 | disposition home or self-care (01) ==
PROVIDERS: PCP Nurse Practitioner Family; Visit Provider Nurse Practitioner Family
DX: F90.2 Attention-deficit hyperactivity disorder, combined type (principal)

== ENCOUNTER → 2024-06-03 09:03 | Outpatient (BNVA) | payer OTHER, SELFPAY | PROVIDERS: PCP Nurse Practitioner Family; Visit Provider Nurse Practitioner Family | DX: F90.2 Attention-deficit hyperactivity disorder, combined type (principal); Z79.899 Other long term (current) drug therapy | CPT/HCPCS: 96127; 99212 ==

== ENCOUNTER 2024-09-08 09:47 | Outpatient (AMB) | payer OTHER, SELFPAY ==
--- NOTE | 2024-09-08 09:55 | MHC.PC.OV ---
Vital Signs 09/08/24 09:57 Height 5 ft 10 in Weight 218 lb 6 oz BMI 31.3 BP 124/74 Blood Pressure Location Rt brachial Position Sitting Respiration 12 Pulse 86 Pulse Source Pulse Oximeter Temp 97.2 F Temp Source Oral Pulse Oximetry (%) 96 Oxygen Delivery Method Room Air Intake Visit Reasons: ADHD med check/fu Intake Note: follow up on med Manager Local Required: No Allergies No Known Allergies Allergy (Verified 09/08/24 10:07) Medication List - Last Reconciled 09/08/24 by DOMINIK Vu- dexmethylphenidate ER (Focalin XR) 30 mg PO DAILY hydrocortisone 2.5% 1 appl topical BID PRN Tobacco use date assessed: 03/17/24 Dental Screening Dental Screen Date: 03/17/24 HPI HPI Comments History of Present Illness Details 29-year-old male with migraine with aura (normal brain MRI 2021) generalized anxiety disorder, major depressive disorder, L3-L4 disc herniation [2019 s.p work injury], ADHD Status post wisdom teeth extraction, right thumb lac repair Hospital: [facility] 2019 back injury 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 He has been managing his ADHD with Focalin XR at a dose of 30 mg daily, which was noted to control his symptoms effectively at the last visit. Currently, he reports continued symptom control and attendance at electrical school with no disturbances in academic performance or daily functioning. Wt stable. Eating well. Mood is good. Regarding the wrist issue, approximately two weeks ago, the patient sustained an injury to his left wrist while drilling a hole. Since then, he has experienced persistent pain localized to the lateral aspect of the left wrist. Initially, the injury limited thumb movement, although most mobility has since returned. The pain exacerbates with pressure or weight-bearing activities. He has attempted self-care with Tylenol, but it has not provided significant relief. No previous imaging or professional medical assessment has been performed for this wrist injury prior to today's evaluation. Physical Exam Awake alert NAD RRR LS CTAB Mood and affect approriate L arm neurovasc intact pain over ulnar aspect with ulnar and radial deviation , pain anterior wrist w/ flexion and with pronation skin intact, no erythema, ecchymosis or edema Discussion Notes During this visit, we reviewed his ADHD management plan. The current regimen of Focalin XR at 30 mg daily continues to adequately control his symptoms. He is experiencing academic success without issues in his electrical courses. We also addressed the patient's new complaint of left wrist pain following a work-related injury two weeks ago. I proposed obtaining an x-ray for a more in-depth evaluation and suggested a referral to orthopedic specialists depending on the findings. He was advised to continue using drjy-vky-yvatijv analgesics like Tylenol or ibuprofen as tolerated, avoiding activities that might aggravate the wrist pain. Splinting was considered unnecessary at this stage. I informed the patient of the x-ray facility location with a quick turnaround and instructed him to anticipate a call for the orthopedic referral. Patient Instructions - Continue Focalin XR 30 mg daily as prescribed. - Proceed to get an x-ray of the left wrist at the [facility] office. - Use Tylenol or ibuprofen for wrist pain management as needed. - Avoid activities that strain the left wrist. - Monitor for worsening symptoms or changes. Plan - ADHD: Continue current medication regime with Focalin XR at 30 mg daily. Follow up in three months for ADHD management. - Left Wrist Pain: Obtain an x-ray to evaluate the injury further; anticipate orthopedic referral based on imaging findings. Continue analgesic use as needed and avoid exacerbating activities. RTO 3 MONTHS ROUTINE ADHD MED FU SOONER PRN Patient was informed and verbally consented to the use of an ambient scribe for clinic note documentation during this visit. [facility] Medical History (Updated 09/08/24 @ 10:11 by DOMINIK Vu-) Anxiety Depression Sleep difficulties Surgical History [place] teeth extracted History of circumcision Family History (Updated 03/17/24 @ 09:26 by Ana Jolly CMA) Mother Allergies Migraine Asthma Cardiovascular disease Clotting disorder Father Hodgkin disease Hemochromatosis Family/Other No problems noted. 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 1. Little interest or pleasure in doing things: not at all 2. Feeling down, depressed, or hopeless: not at all 3. Trouble falling or staying asleep, or sleeping too much: not at all 4. Feeling tired or having little energy: several days 5. Poor appetite or overeating: not at all 6. Feeling bad about yourself - or that you are a failure or have let yourself or your family down: not at all 7. Trouble concentrating on things, such as reading the newspaper or watching television: not at all 8. Moving or speaking so slowly that other people could have noticed. Or the opposite - being so fidgety or restless that you have been moving around a lot more than usual: not at all 9. Thoughts that you would be better off or of hurting yourself in some way: not at all Total score: 1 92162 - PHQ-9 Billing: Yes Source: Developed by Drs. Jaime Estrella, Luisa Pickett, Wiley Figueroa and colleagues, with an educational ousmane from [employer]. Thrive Questionnaire Date Thrive assessed: 09/08/24 I am a: Patient What is your living situation today?: I have a steady place to live Within the past 12 months, did the food you bought not last and you didn't have the money to get more?: Never true Within the past 12 months, did you worry whether your food would run out before you got money to buy more?: Never true Do you have trouble paying for medicines?: No Do you have trouble getting transportation to medical appointments?: No Do you have trouble paying your heating and electricity bill?: No Do you have trouble taking care of your child, family member or friend?: No Do you have trouble with day-to-day activities such as bathing, preparing meals, shopping, managing finances, etc.?: No Are you currently unemployed and looking for a job?: No Are you interested in more education?: No Please select the resources that you would like help with: None Currently or been in a relationship where the following occur: No concerns reported THRIVE Score: 0 AUDIT C Alcohol Use Questionnaire (AUDIT-C) 1. How often do you have a drink containing alcohol?: 2-4 times a month 2. How many drinks containing alcohol do you have on a typical day when you are drinking?: 1 or 2 3. How often do you have six or more drinks on one occasion?: Less than monthly Total Score: 3 BEATRIZ-7 AMB Questionnaire BEATRIZ-7 Date BEATRIZ - 7 assessed: 09/08/24 Feeling nervous, anxious, or on edge: 0 = Not at all Not being able to stop or control worryin = Not at all Worrying too much about different things: 0 = Not at all Trouble relaxin = Not at all Being so restless that it is hard to sit still: 0 = Not at all Becoming easily annoyed or irritable: 0 = Not at all Feeling afraid as if something awful might happen: 0 = Not at all Total BEATRIZ-7 score (0-4 normal; 5-9 mild; 10-14 moderate; 15-21 severe): 0 Source: Developed by Drs. Jaime Estrella, Luisa Pickett, Wiley Fgiueroa and colleagues, with an educational ousmane from [employer]. BEATRIZ-7 Assessment Billing BEATRIZ-7 Assessment Tool: BEATRIZ-7 Assessment 21730 Physical exam (Primary Care) Vital Signs: Last Vital Signs Temp 97.2 F 09/08/24 09:57 Pulse 86 09/08/24 09:57 Resp 12 09/08/24 09:57 BP 124/74 09/08/24 09:57 Pulse Ox 96 09/08/24 09:57 Oxygen Delivery Method Room Air 09/08/24 09:57 BMI result Body Mass Index 31.3 BMI Assessment/Plan discussion: High BMI High, discussed plan: lifestyle Tobacco/Smoking Status: Tobacco use Status Tobacco use date assessed 03/17/24 09/08/24 09:59 Patient Tobacco Use Status Never used Tobacco 09/08/24 09:59 e-Cigarette/Vaping Use Never Used 09/08/24 09:59 PHQ-9: PHQ-9 Score PHQ-9: Total score 1 09/08/24 10:06 Thrive Assessment: Date of Thrive Assessment Date Thrive assessed 09/08/24 09/08/24 09:59 Currently or been in a relationship where the following occur: No concerns reported Coding Level of Care Code Est Pt Level 4 (07769) Complex EM visit Add On G2211 Diagnoses BEATRIZ (generalized anxiety disorder) F41.1 Mild episode of recurrent major depressive disorder F33.0 Major depression episode severity: mild Obesity (BMI 30-39.9) E66.9 Attention deficit hyperactivity disorder (ADHD), combined type F90.2 Attention deficit-hyperactivity disorder type: combined inattentive-hyperactive Left wrist pain M25.532 Additional Codes BEATRIZ-7 Assessment Billing - BEATRIZ-7 Assessment Tool: BEATRIZ-7 Assessment 48123 ([id number]) PHQ-9 - 17611 - PHQ-9 Billing: Yes ([id number]) Assessment & Plan Assessment & Plan (1) BEATRIZ (generalized anxiety disorder): Code(s): F41.1 - Generalized anxiety disorder Category: Medical (2) MDD (major depressive disorder), recurrent episode: Code(s): F33.9 - Major depressive disorder, recurrent, unspecified Category: Medical Qualifiers: Major depression episode severity: mild Qualified Code(s): F33.0 - Major depressive disorder, recurrent, mild (3) Obesity (BMI 30-39.9): Code(s): E66.9 - Obesity, unspecified Category: Medical (4) ADHD: Comment: Neuropsych eval 2007 Code(s): F90.9 - Attention-deficit hyperactivity disorder, unspecified type Category: Medical Qualifiers: Attention deficit-hyperactivity disorder type: combined inattentive-hyperactive Qualified Code(s): F90.2 - Attention-deficit hyperactivity disorder, combined type (5) Left wrist pain: Code(s): M25.532 - Pain in left wrist Category: Medical Plan . Orders: Orders XR wrist LT w scaphoid Today M25.532 - Pain in left wrist Referrals Orthopedics Referral M25.532 - Pain in left wrist Medications: Refilled dexmethylphenidate ER (Focalin XR) Partial Fill upon patient request. 30 mg PO DAILY 90 caps 0RF
[2024-09-08 09:57] VITALS: BP 124/74; PULSE 86; RESP 12; TEMP 36.2; O2SAT 96; BMI 31.3
== END 2024-09-08 10:13 | disposition home or self-care (01) ==
PROVIDERS: PCP Nurse Practitioner Family; Visit Provider Nurse Practitioner Family
DX: F41.1 Generalized anxiety disorder (principal); F33.0 Major depressive disorder, recurrent, mild; Z68.31 Body mass index [BMI] 31.0-31.9, adult; E66.9 Obesity, unspecified; F90.2 Attention-deficit hyperactivity disorder, combined type; M25.532 Pain in left wrist

== ENCOUNTER → 2024-09-08 09:47 | Outpatient (BNVA) | payer OTHER, SELFPAY | PROVIDERS: PCP Nurse Practitioner Family; Visit Provider Nurse Practitioner Family | DX: F41.1 Generalized anxiety disorder (principal); F33.0 Major depressive disorder, recurrent, mild; E66.9 Obesity, unspecified; F90.2 Attention-deficit hyperactivity disorder, combined type; M25.532 Pain in left wrist | CPT/HCPCS: 96127; 99212 ==

== ENCOUNTER 2024-09-13 13:16 | Outpatient (REF) | payer OTHER, SELFPAY ==
--- NOTE | ~2024-09-13 | XR_ITS ---
CLINICAL HISTORY: M25.532 - Pain in left wrist 4 view left wrist Comparison: None Findings: No fractures or dislocations. Old left 3rd metacarpal fracture, healed. No significant arthritic change or erosions. No radiopaque foreign body. IMPRESSION: 1. No acute findings This document has been electronically signed by: Arslan Gomez MD on 09/13/2024 14:14:49
== END 2024-09-13 13:17 | disposition home or self-care (01) ==
LOC: HO.HMGCX 13:16
PROVIDERS: PCP Nurse Practitioner Family; Visit Provider Nurse Practitioner Family
DX: M25.532 Pain in left wrist (principal)
CPT/HCPCS: 73110

== ENCOUNTER → 2024-09-13 13:23 | Outpatient (BNV) | payer OTHER, SELFPAY | PROVIDERS: PCP Nurse Practitioner Family; Visit Provider Radiology Vascular & Interventional Radiology | DX: M25.532 Pain in left wrist (principal) | CPT/HCPCS: 73110 ==

== ENCOUNTER 2024-10-13 08:42 | Outpatient (REF) | payer OTHER, SELFPAY ==
--- NOTE | ~2024-10-13 | XR_ITS ---
CLINICAL HISTORY: M25.532 - Pain in left wrist Left wrist three views Comparison: None Findings: No acute fracture or dislocation identified. No acute focal bony abnormality. No radiopaque foreign body noted. Impression: No acute bony abnormality This document has been electronically signed by: Valentín Moon MD on 10/14/2024 18:22:41
--- OUTSIDE RECORDS SUMMARY | 2024-10-13 09:14 | XMS_ITS | Clinical Summary ---
Author Organization Patient Business Ser [facility] Address [address] [place] [address] Care Team Providers Care Public Relations Writer Name Role Phone Pineda Sharp MD Primary Care Provider [phone] Allergies No known active allergies Medications meclizine (ANTIVERT) 25 mg tablet Take 1 Tablet by mouth every 8 hours as needed (dizziness/vert igo). Medication may cause drowsiness, do not drive/operate machinery while taking - Oral Active sertraline (ZOLOFT) 50 mg tablet Take 1.5 Tablets by mouth daily. - Oral Active Active Problems Problem Noted Date Diagnosed Date Anxiety 07/29/2024 Chronic headaches 07/29/2024 Insomnia 07/29/2024 Depression 07/29/2024 Immunizations Name Administration Dates Next Due DTaP (Infanrix) 6wks to less than 7yo ,05/26/1996,1995,09/20,1995 Hepatitis B (Rsaomov-V-Znbts , Recombivax HB-Adult) 19yo and older 1995,1995,1995 HiB 05/26/1996, 6,1995,07/17 IPV Inactivated polio (Ipol) 6wks and older 11/21/2000,1995,1995,07/17 MMR, measles mumps and rubel la Live (Priorix; M-M-R II) 12mo and older 11/21/2000,05/26/1996 Meningococcal Conjugate (Men veo) MenACWY 11yo to less than 19 yo 02/04/2007 Tdap Tetanus diptheria acell ular pertussis (Boostrix; Adacel) 7yo and older 02/04/2007 Varicella live (Varivax) 12m o and older 05/26/1996 Surgical History Surgery Date Site/Laterality Comments CIRCUMCISION, PRIMARY PROCEDURE: HISTORICAL CIRCUMCISION WISDOM TOOTH EXTRACTION 07/24 PROCEDURE: HISTORICAL WISDOM TEETH EXTRACTION; COMMENT: 2 teeth Medical History Medical History Date Comments Attention deficit disorder w ith hyperactivity(314.01) 06/03/2008 DX:Attention deficit disorde r with hyperactivity(314.01); COMMENT: mother feels this was a misdiagnosis. Chronic headaches 08/18/2011 DX:Chronic hea daches Wart 08/18/2011 DX:Wart Family History Relation Name Status Comments Brother 1 Alive Healthy Brother 2 Alive Healthy Father HODGKIN'S DX AG E 44, S/P RX,HEMOCHROMATOSIS Maternal Grandfather ACCIDEN T Maternal Grandmother HOMICID E, H/O ARTERIOSCLEROSIS Mother Alive ALLERIGIES, ALISSON MISTY Paternal Grandfather Alive GOUT Paternal Grandmother GLAUCOM A, DM, CHF Uncle HEMOCHROMATOSIS Social History Tobacco Use Types Packs/Day Years Used Date Smoking Tobacco: Never Smokeless Tobacco: Never Alcohol Use Standard Drinks/Week Comments No 0 (1 standard drink = 0.6 oz pur e alcohol) Sex and Gender Information Value Date Recorded Sex Assigned at Not on file Legal Sex Male 3:51 PM EST Gender Identity Not on file Sexual Orientation Not on file Obstetrics History Last Filed Vital Signs Vital Sign Reading Time Taken Comments Blood Pressure 100/72 12/02/2021 9:44 AM EDT Pulse 70 12/02/2021 9:44 AM EDT Temperature - - Respiratory Rate - - Oxygen Saturation - - Inhaled Oxygen Concentration - - Weight 95.9 kg (211 lb 6.4 oz) 12/02/2021 9:44 A M EDT Height 179.1 cm (5' 10.5 ) 12/02/2021 9:44 AM ED T Body Mass Index 29.9 12/02/2021 9:44 AM EDT Plan of Treatment Health Maintenance Due Date Last Done Comments DTaP,Tdap,and Td Vaccines (7 - Td or Tdap) 02/04/2017 02/04/2007, 11/21/2000, 05/26/1996, Additional history exists Depression Screening 09/10/2020 HIV Screening 09/10/2020 Hepatitis C Screening 09/10/2020 Social Influencers of Health Screening 09/10/2020 COVID-19 Vaccine ( season) 2024 Influenza Vaccine (#1) 2024 Hepatitis B Vaccines Completed 1995, 1995, 1995 HIB Vaccines Completed 05/26/1996, 11/11, 1995, Additional history exists Varicella Vaccines Aged Out 05/26/1996 No longer eligible based on patient's age to complete this topic IPV Vaccines Completed 11/21/2000, 11/11, 1995, Additional history exists MMR Vaccines Completed 11/21/2000, 05/26/1996 Meningococcal ACWY Vaccine Aged Out 02/04/2007 N o longer eligible based on patient's age to complete this topic HPV Vaccines Aged Out No longer eligi ble based on patient's age to complete this topic Hepatitis A Vaccines Aged Out No long er eligible based on patient's age to complete this topic Meningococcal B Vacine Aged Out No lo nger eligible based on patient's age to complete this topic Pneumococcal Vaccine: Pediatrics (0 to 5 Years) and At-Risk Patients (6 to 64 Years) Aged Out No longer eligible based on patient's age to complete this topic RSV Immunization Patients Under 20 months Aged Out No longer eligible based on patient's age to complete this topic Care Teams Public Relations Writer Relationship Specialty Start Date End Date Pineda Sharp MD [address] [place] [address] PCP - General Internal Medicine 11/22/21
== END 2024-10-13 08:43 | disposition home or self-care (01) ==
LOC: HO.HOSX 08:42
DX: M25.532 Pain in left wrist (principal); M77.8 Other enthesopathies, not elsewhere classified
CPT/HCPCS: 73110; 99202

== ENCOUNTER 2024-10-13 14:50 | Outpatient (AMB) | payer OTHER, SELFPAY ==
[2024-10-13 14:53] VITALS: BMI 31.3
--- NOTE | 2024-10-13 14:53 | A.OFFVIS_ITS ---
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 Patient reports pain is primarily located on the ulnar aspect of her wrist. He has tried heat, ice, and Ibuprofen without relief. Denies numbness, tingling. Reports history of multiple finger locking, bilaterally. Reports left 3rd MCP fracture, 2018. 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 Patient reports pain is primarily located on the ulnar aspect of her wrist. He has tried heat, ice, and Ibuprofen without relief. Denies numbness, tingling. The patient reports that this pain is particularly exacerbated by heavy lifting, which he has to do frequently at his job. Patient states that his pain did improve initially, but his improvement has since stagnated. Reports history of multiple finger locking, bilaterally. Reports left 3rd MCP fracture, 2018. [facility] Medical History (Updated 10/13/24 @ 17:06 by ALISA Lr) Anxiety Depression Sleep difficulties Surgical History [place] teeth extracted History of circumcision Family History (Updated 03/17/24 @ 09:26 by Ana Jolly CMA) Mother Allergies Migraine Asthma Cardiovascular disease Clotting disorder Father Hodgkin disease Hemochromatosis Family/Other No problems noted. 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 Neuro: Normal sensation of the tips of all digits of the left hand at this time Vascular: Cap refill brisk Pain: Patient reports tenderness to palpation about the ulnar aspect of the left wrist Pain with flexion and resisted extension of the left wrist, primarily in the ulnar and dorsal aspect of the left wrist ROM: Patient was able to make a closed fist and extend all digits of the left hand fully and without difficulty Pronation, supination, flexion, extension of the left wrist full and intact, but patient does report some discomfort with all range of motion Skin: No lacerations or abrasions. General: No ecchymosis, erythema, or evidence of infection. Psych: Appears grossly normal Affect normal Attitude cooperative Results Reviewed Results Reviewed: X-rays obtained in the office today and independently reviewed by me, Solo Cerda PA-C, demonstrate no fracture or acute bony abnormality of the left hand or wrist. Assessment & Plan Assessment & Plan (1) Extensor carpi ulnaris tendinitis: Code(s): M77.8 - Other enthesopathies, not elsewhere classified Category: Medical Plan 1. ECU tendinitis of left wrist Patient is educated about this condition Patient was educated about the treatment options available At this time, patient is provided with a Velcro wrist splint to wear with daytime activities when his wrist is particularly bothering him Patient was also referred to occupational therapy for range of motion and strengthening of the left wrist in the setting of ECU tendinitis Patient was amenable to this plan Patient will follow-up as needed with any acute concerns Orders: Orders XR wrist LT min 3V Today M25.532 - Pain in left wrist Coding Level of Care Code New Pt Level 3 (12226) Diagnoses Extensor carpi ulnaris tendinitis M77.8
--- OUTSIDE RECORDS SUMMARY | 2024-10-13 17:39 | XMS_ITS | Clinical Summary ---
Author Organization Patient Business Ser [facility] Address [address] [place] [address] Care Team Providers Care Ssis Ssrs Developer Name Role Phone Pineda Sharp MD Primary Care Provider [phone] Allergies No known active allergies Medications meclizine [...] to less than 7yo ,05/26/1996,1995,09/20,1995 Hepatitis B (Hahsysg-H-Lybfy , Recombivax HB-Adult) 19yo and older 1995,1995,1995 [...] age to complete this topic Care Teams Ssis Ssrs Developer Relationship Specialty Start Date End Date Pineda Sharp MD [address] [place] [address] PCP - General Internal Medicine 11/22/21
== END 2024-10-13 15:31 | disposition home or self-care (01) ==
PROVIDERS: PCP Nurse Practitioner Family
DX: M77.8 Other enthesopathies, not elsewhere classified (principal)
CPT/HCPCS: 99203

== ENCOUNTER → 2024-10-13 15:03 | Outpatient (BNV) | payer OTHER, SELFPAY | PROVIDERS: Visit Provider Radiology Diagnostic Radiology | DX: M25.532 Pain in left wrist (principal) | CPT/HCPCS: 73110 ==

== ENCOUNTER 2024-11-17 08:56 | Outpatient (AMB) | payer OTHER, SELFPAY ==
--- NOTE | 2024-11-17 09:02 | A.OFFPC_ITS ---
Vital Signs 11/17/24 09:15 Height 5 ft 10 in Weight 222 lb 2 oz BMI 31.9 BP 98/66 Blood Pressure Location Rt brachial Position Sitting Respiration 12 Pulse 93 Pulse Source Pulse Oximeter Temp 97.3 F Temp Source Oral Pulse Oximetry (%) 96 Oxygen Delivery Method Room Air Intake Visit Reasons: 3 mo routine med check 15 min Intake Note: 3 months routine med review Cyber Intelligence Analyst Required: No Allergies No Known Allergies Allergy (Verified 11/17/24 09:03) Medication List - Last Reconciled 11/17/24 by Ludy Butterfield, VICE PRESIDENT DIGITAL STRATEGIST- dexmethylphenidate ER (Focalin XR) 30 mg PO DAILY hydrocortisone 2.5% 1 appl topical BID PRN Tobacco use date assessed: 11/17/24 Dental Screening Dental Screen Date: 11/17/24 Did you have a dental visit in the last 12 months?: Yes Did you have a dental problem in the last 6 months where you did not have access to dental care?: No Was dental information given to patient?: Patient has dentist HPI HPI Comments History of Present Illness Details 29-year-old male with migraine with aura (normal brain MRI 2021) generalized anxiety disorder, major depressive disorder, L3-L4 disc herniation [2019 s.p work injury], ADHD Status post wisdom teeth extraction, right thumb lac repair Hospital: [facility] 2019 back injury Social: 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 Unfortunately since last office visit he has been without his methylphenidate Focalin XR 30 mg due to a nationwide shortage. His current pharmacy is [facility]. This medication was working quite well for his ADHD. Without this medication he has had a return of his symptoms. His anxiety and depression continue to be well controlled without any medication. In other regards he started with acute on chronic back pain. He has a history of an L3-L4 disc herniation. Reports that he bent over on and developed tightness in his back associated with pain with bending and movement. Treated with ibuprofen 400 mg and rest with improvement in his symptoms. He does associate some intermittent tingling in his right hand in his right foot. He denies any fever, chills, changes in bowel or bladder, saddle paresthesia or any loss of function or red flag symptoms associated with back pain. Physical Exam Awake alert NAD RRR LS CTAB No spinal tenderness, SEO x 4, Normal strength, tone, reflexes, pulses intact, no edema. Paraspinal muscle spasm r lower back. Mood and affect appropriate Plan: Call placed to [facility] pharmacy. They are able to order him generic Focalin XR 30 mg and this we will be available to him tomorrow. Patient made aware and agreeable to start using [facility] pharmacy. We will need to update his contract with the next office visit. In regards to his back pain, encouraged him to increase his ibuprofen to 800 mg take 3 times a day as needed. Use warm moist heat, foam roller, gentle stretching and exercises. Asked to return to the office if this does not improve his pain. Would like to see him back in 3 months for routine follow up of his ADHD, med check. We will need to update his contract at that time. Educated to send me a message on the patient portal for a medication refill. Total time spent caring for the patient today was 30 minutes. This includes time spent before the visit reviewing the chart, time spent during the visit, and time spent after the visit on documentation, reviewing laboratory results, diagnostic imaging, medications, performing a medically necessary evaluation, counseling on diagnoses, care coordination, ordering appropriate tests, ordering appropriate medications, review of tests performed by other providers, reporting test results with the patient, communication with other healthcare providers. REPLACED BY [facility] Medical History (Updated 11/17/24 @ 09:47 by Ludy Butterfield [facility]) Anxiety Depression Sleep difficulties Surgical History History of circumcision [place] teeth extracted Family History (Updated 03/17/24 @ 09:26 by Ana Jolly CMA) Mother Allergies Migraine Asthma Cardiovascular disease Clotting disorder Father Hodgkin disease Hemochromatosis Family/Other No problems noted. 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 1. Little interest or pleasure in doing things: not at all 2. Feeling down, depressed, or hopeless: not at all 3. Trouble falling or staying asleep, or sleeping too much: not at all 4. Feeling tired or having little energy: not at all 5. Poor appetite or overeating: not at all 6. Feeling bad about yourself - or that you are a failure or have let yourself or your family down: not at all 7. Trouble concentrating on things, such as reading the newspaper or watching television: not at all 8. Moving or speaking so slowly that other people could have noticed. Or the opposite - being so fidgety or restless that you have been moving around a lot more than usual: not at all 9. Thoughts that you would be better off or of hurting yourself in some way: not at all Total score: 0 Depression Screening Interpretation: Negative Depression Screening Done: Yes 74036 - PHQ-9 Billing: Yes Source: Developed by Drs. Jaime Estrella, Luisa Pickett, Wiley Figueroa and colleagues, with an educational ousmane from [employer]. Thrive Questionnaire Date Thrive assessed: 11/17/24 I am a: Patient What is your living situation today?: I have a steady place to live Within the past 12 months, did the food you bought not last and you didn't have the money to get more?: Never true Within the past 12 months, did you worry whether your food would run out before you got money to buy more?: Never true Do you have trouble paying for medicines?: No Do you have trouble getting transportation to medical appointments?: No Do you have trouble paying your heating and electricity bill?: No Do you have trouble taking care of your child, family member or friend?: No Do you have trouble with day-to-day activities such as bathing, preparing meals, shopping, managing finances, etc.?: No Are you currently unemployed and looking for a job?: No Are you interested in more education?: No Please select the resources that you would like help with: None Currently or been in a relationship where the following occur: No concerns reported THRIVE Score: 0 BEATRIZ-7 AMB Questionnaire BEATRIZ-7 Date BEATRIZ - 7 assessed: 11/17/24 Feeling nervous, anxious, or on edge: 0 = Not at all Not being able to stop or control worryin = Not at all Worrying too much about different things: 0 = Not at all Trouble relaxin = Not at all Being so restless that it is hard to sit still: 0 = Not at all Becoming easily annoyed or irritable: 0 = Not at all Feeling afraid as if something awful might happen: 0 = Not at all Total BEATRIZ-7 score (0-4 normal; 5-9 mild; 10-14 moderate; 15-21 severe): 0 Source: Developed by Drs. Jaime Estrella, Luisa Pickett, Wiley Figueroa and colleagues, with an educational ousmane from [employer]. BEATRIZ-7 Assessment Billing BEATRIZ-7 Assessment Tool: BEATRIZ-7 Assessment 40706 Physical exam (Primary Care) Vital Signs: Last Vital Signs Temp 97.3 F 11/17/24 09:15 Pulse 93 11/17/24 09:15 Resp 12 11/17/24 09:15 BP 98/66 11/17/24 09:15 Pulse Ox 96 11/17/24 09:15 Oxygen Delivery Method Room Air 11/17/24 09:15 BMI result Body Mass Index 31.9 Tobacco/Smoking Status: Tobacco use Status Tobacco use date assessed 11/17/24 11/17/24 09:04 Patient Tobacco Use Status Never used Tobacco 11/17/24 09:02 e-Cigarette/Vaping Use Never Used 11/17/24 09:02 PHQ-9: PHQ-9 Score PHQ-9: Total score 0 11/17/24 09:04 Depression Screening Interpretation: Negative Thrive Assessment: Date of Thrive Assessment Date Thrive assessed 11/17/24 11/17/24 09:04 Currently or been in a relationship where the following occur: No concerns reported Coding Level of Care Code Est Pt Level 4 (58757) Complex EM visit Add On G2211 Diagnoses Attention deficit hyperactivity disorder (ADHD), combined type F90.2 Attention deficit-hyperactivity disorder type: combined inattentive- hyperactive BEATRIZ (generalized anxiety disorder) F41.1 Mild episode of recurrent major depressive disorder F33.0 Major depression episode severity: mild Chronic right-sided low back pain without sciatica M54.50; G89.29 Chronicity: chronic Back pain laterality: right Sciatica presence: without sciatica Additional Codes BEATRIZ-7 Assessment Billing - BEATRIZ-7 Assessment Tool: BEATRIZ-7 Assessment 15581 ([id number]) PHQ-9 - 79768 - PHQ-9 Billing: Yes ([id number]) Assessment & Plan Assessment & Plan (1) ADHD: Comment: Neuropsych eval 2007 Code(s): F90.9 - Attention-deficit hyperactivity disorder, unspecified type Category: Medical Qualifiers: Attention deficit-hyperactivity disorder type: combined inattentive- hyperactive Qualified Code(s): F90.2 - Attention-deficit hyperactivity disorder, combined type (2) BEATRIZ (generalized anxiety disorder): Code(s): F41.1 - Generalized anxiety disorder Category: Medical (3) MDD (major depressive disorder), recurrent episode: Code(s): F33.9 - Major depressive disorder, recurrent, unspecified Category: Medical Qualifiers: Major depression episode severity: mild Qualified Code(s): F33.0 - Major depressive disorder, recurrent, mild (4) Low back pain: Code(s): M54.50 - Low back pain, unspecified Category: Medical Qualifiers: Chronicity: chronic Back pain laterality: right Sciatica presence: without sciatica Qualified Code(s): M54.50 - Low back pain, unspecified; G89.29 - Other chronic pain Plan . Medications: Refilled dexmethylphenidate ER (Focalin XR) Partial Fill upon patient request. 30 mg PO DAILY 30 caps 0RF
[2024-11-17 09:15] VITALS: BP 98/66; PULSE 93; RESP 12; TEMP 36.3; O2SAT 96; BMI 31.9
--- OUTSIDE RECORDS SUMMARY | 2024-11-17 09:48 | XMS_ITS | Clinical Summary ---
Author Organization Patient Business Ser [facility] Address [address] [place] [address] Care Team Providers Care Jet Blade Polisher Name Role Phone Pineda Sharp MD Primary Care Provider [phone] Allergies No known active allergies Medications meclizine [...] to less than 7yo ,05/26/1996,1995,09/20,1995 Hepatitis B (Snvppwa-J-Caonv , Recombivax HB-Adult) 19yo and older 1995,1995,1995 [...] COVID-19 Vaccine ( season) 2024 Influenza Vaccine (Season Ended) 2025 Hepatitis B Vaccines Completed 1995, 1995, 1995 [...] age to complete this topic Care Teams Jet Blade Polisher Relationship Specialty Start Date End Date Pineda Sharp MD [address] [place] [address] PCP - General Internal Medicine 11/22/21
== END 2024-11-17 09:43 | disposition home or self-care (01) ==
LOC: HO.HMCFM 08:56
PROVIDERS: PCP Nurse Practitioner Family; Visit Provider Nurse Practitioner Family
DX: F90.2 Attention-deficit hyperactivity disorder, combined type (principal); F41.1 Generalized anxiety disorder; F33.0 Major depressive disorder, recurrent, mild; M54.50 Low back pain, unspecified; G89.29 Other chronic pain

== ENCOUNTER → 2024-11-17 08:56 | Outpatient (BNVA) | payer OTHER, SELFPAY | PROVIDERS: PCP Nurse Practitioner Family; Visit Provider Nurse Practitioner Family | DX: F90.2 Attention-deficit hyperactivity disorder, combined type (principal); F41.1 Generalized anxiety disorder; F33.0 Major depressive disorder, recurrent, mild; M54.50 Low back pain, unspecified; G89.29 Other chronic pain | CPT/HCPCS: 96127; 99212 ==

== ENCOUNTER 2025-02-20 09:01 | Outpatient (AMB) | payer OTHER, SELFPAY ==
--- NOTE | 2025-02-20 09:04 | A.OFFPC_ITS ---
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 Required: No Allergies No Known Allergies Allergy (Verified 02/20/25 09:12) Medication List - Last Reconciled 02/20/25 by JO ANN VuP- dexmethylphenidate ER (Focalin XR) 30 mg PO DAILY hydrocortisone 2.5% 1 appl topical BID PRN Tobacco use date assessed: 02/20/25 Dental Screening Dental Screen Date: 02/20/25 Did you have a dental visit in the last 12 months?: Yes Did you have a dental problem in the last 6 months where you did not have access to dental care?: No Was dental information given to patient?: Patient has dentist HPI HPI Comments History of Present Illness Details 29-year-old male with migraine with aura (normal brain MRI 2021) generalized anxiety disorder, major depressive disorder, L3-L4 disc herniation [2019 s.p work injury], ADHD Status post wisdom teeth extraction, right thumb lac repair Hospital: [place] [address] back injury Social: 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 - ADHD: Managed with daily Focalin XR 30 mg, obtained consistently from [facility]. Patient reports effective symptom control. Challenges include pharmacy access due to restrictive hours. Reported compliance with medication schedule. - Left Knee Pain: Chronic pain noted wit hout acute injury. Pain present on bending, minor instability episodes, not responsive to bracing. Absence of infectious symptoms like fever or redness. No previous diagnostic imaging or surgical intervention. L Knee swelling on lateral aspect months ago no overt injury. Denies fever, chills, redness joint. Worse w/ bending and walking. Gives out rarely. This is ongoing. Has never had any surgery. No recent imaging. Using braces and NSAID which does not help. Lower Back is back to baseline Review of Systems - General: Denies fever, chills. - Musculoskeletal: Reports left knee olga n, minor instability. Denies joint redness. - Neurologic: Denies difficulty sleeping . Reports stable ADHD symptoms. Physical Exam General: Well developed, well nourished, in no acute distress. Appears stated age. Head: Normocephalic, atraumatic. Eyes: Pupils are equal, round and reactive to light and accommodation. Conjunctivae are clear. Lungs: Clear to auscultation bilaterally. No rales, rhonchi or wheeze noted. Good air flow in all gaspar. Heart: Regular rate and rhythm. No murmurs, click, rubs or gallops are noted.. Pulses: Peripheral pulses are equal and palpable bilaterally. Extremities: No clubbing, cyanosis nor edema is noted. Psych: Mood and affect appropriate. Patient is aware they are being prescribed a controlled substance. They were educated that this medication does require routine monthly office visits to monitor weight, blood pressure, heart rate and to screen for any signs of abuse or misuse. They were educated that they may be subject to random pill counts and/or U tox screenings. The prescription drug monitoring program we will be monitored at each visit to further screen for signs of abuse or misuse to include filling prescriptions at other physician's offices. The patient should maintain prescription refills of the same local pharmacy and advised the provider of any changes immediately. If at any time there is a concern for abuse or misuse or if there are any signs of side effects such as elevated blood pressure, elevated heart rate or weight loss patient is made aware that this medication will be discontinued. The patient is aware of the above and is willing to proceed. Here today for provider monitoring for FOCALIN XR which is being prescribed for ADHD Today during the visit the following was reviewed: Screened for risk of opioid misuse using a validated screening tool. Receive, review, and sign an approved HMG Agreement and Informed Consent for Receiving Controlled Substances, which should be stored in the EMR. 02/20/2025 Non-pharmacologic and non-opioid pharmacologic options should be used as a first line for chronic pain unless otherwise contraindicated & in conjunction with Reviewed side effects and discuss the risks of addiction and overdose with all patients on chronic opioid therapy. Counseled patient regarding safe storage and disposal of medications. Prescribing intranasal naloxone (Narcan) rescue kits to patients if appropriate. Prescriptions should be limited to 28-day supplies unless mandated otherwise by insurance. Renewals should not be given on evenings, holidays, or weekends. Regular clinical reassessment of pain, functional goals, treatment plan, and adherence. Understand that pill counts and/or random toxicology screens (minimum yearly) are all part of a standard HMG protocol for care. More frequent monitoring is appropriate for monitoring of symptoms or concerns of misuse. Irregular findings should be addressed with the patient and documented in the EMR with the appropriate clinical and/or administrative response. Signs of misuse: N INPATIENT CARE MANAGER RN reviewed: Y Contract up to date: Y, RENEWED TODAY Random pill count done: N UTox done: Y Next appt: 3 MONTHS Discussion Notes During the consultation, we discussed the ongoing management of ADHD with Focalin XR 30 mg daily, noting the effectiveness and necessity of obtaining the medication from [facility] despite inconvenience due to restrictive operational hours. We also reviewed the persistent left knee pain, suspecting potential meniscal involvement given the symptomatology and physical examination findings. I proposed referral to an [facility], an orthopedic urgent care center with flexible hours, for further evaluation and possible imaging, such as x-rays or an MRI, should an initial x-ray point towards further investigation needs. Advised on the use of [id number]-[id number] ibuprofen (800 mg) for pain alleviation. The patient agreed to pursue evaluation at the urgent care center at his convenience. We planned to reevaluate ADHD medication pickup logistics if necessary, and anticipate coordination for an upcoming physical examination inge ng the next follow-up in three months. Assessment and Plan 1. Attention Deficit Hyperactivity Disor bryn (ADHD) - Continue Focalin XR 30 mg daily. - Supply from [facility]. Contract updated today 2. Left Knee Pain - Evaluate at [facility] for imaging. - Use ibuprofen 800 mg as needed. Patient Instructions - Continue taking Focalin XR 30 mg daily . - Visit [facility] for knee evaluation when convenient. - Use 800 mg ibuprofen for knee pain as needed. - Follow-up in three months for physical and medication check. Consent Patient was informed and verbally consented to the use of an ambient scribe for clinic note documentation during this visit. Total time spent caring for the patient today was 30 minutes. This includes time spent before the visit reviewing the chart, time spent during the visit, and time spent after the visit on documentation, reviewing laboratory results, diagnostic imaging, medications, performing a medically necessary evaluation, counseling on diagnoses, care coordination, ordering appropriate tests, ordering appropriate medications, review of tests performed by other providers, reporting test results with the patient, communication with other healthcare providers. [facility] Medical History (Updated 02/20/25 @ 07:12 by [facility]) Anxiety Depression Sleep difficulties Surgical History History of circumcision [place] teeth extracted Family History (Updated 03/17/24 @ 09:26 by Ana Jolly [facility]) Mother Allergies Migraine Asthma Cardiovascular disease Clotting disorder Father Hodgkin disease Hemochromatosis Family/Other No problems noted. 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 Current occupational exposures/hazards: No Cognitive needs: No Hearing needs: No Vision needs: No Questionnaire Thrive Questionnaire Date Thrive assessed: 09/08/24 I am a: Patient What is your living situation today?: I have a steady place to live Within the past 12 months, did the food you bought not last and you didn't have the money to get more?: Never true Within the past 12 months, did you worry whether your food would run out before you got money to buy more?: Never true Do you have trouble paying for medicines?: No Do you have trouble getting transportation to medical appointments?: No Do you have trouble paying your heating and electricity bill?: No Do you have trouble taking care of your child, family member or friend?: No Do you have trouble with day-to-day activities such as bathing, preparing meals, shopping, managing finances, etc.?: No Are you currently unemployed and looking for a job?: No Are you interested in more education?: No Please select the resources that you would like help with: None Currently or been in a relationship where the following occur: No concerns reported THRIVE Score: 0 BEATRIZ-7 AMB Questionnaire BEATRIZ-7 Date BEATRIZ - 7 assessed: 11/17/24 Source: Developed by Drs. Jaime Estrella, Luisa Pickett, Wiley Figueroa and colleagues, with an educational ousmane from [employer]. Physical exam (Primary Care) Vital Signs: Last Vital Signs Temp 97.2 F 02/20/25 09:07 Pulse 95 02/20/25 09:07 Resp 12 02/20/25 09:07 BP 122/70 02/20/25 09:07 Pulse Ox 97 02/20/25 09:07 Oxygen Delivery Method Room Air 02/20/25 09:07 BMI result Body Mass Index 30.2 Tobacco/Smoking Status: Tobacco use Status Tobacco use date assessed 02/20/25 02/20/25 09:09 Patient Tobacco Use Status Never used Tobacco 02/20/25 09:09 e-Cigarette/Vaping Use Never Used 02/20/25 09:09 Thrive Assessment: Date of Thrive Assessment Date Thrive assessed 09/08/24 02/20/25 09:09 Currently or been in a relationship where the following occur: No concerns reported Coding Level of Care Code Est Pt Level 4 (35092) Complex EM visit Add On G2211 Diagnoses Mild episode of recurrent major depressive disorder F33.0 Major depression episode severity: mild BEATRIZ (generalized anxiety disorder) F41.1 Attention deficit hyperactivity disorder (ADHD), combined type F90.2 Attention deficit-hyperactivity disorder type: combined inattentive- hyperactive Chronic right-sided low back pain without sciatica M54.50; G89.29 Chronicity: chronic Back pain laterality: right Sciatica presence: without sciatica Pain and swelling of left knee M25.562; M25.462 Assessment & Plan Assessment & Plan (1) MDD (major depressive disorder), recurrent episode: Code(s): F33.9 - Major depressive disorder, recurrent, unspecified Category: Medical Qualifiers: Major depression episode severity: mild Qualified Code(s): F33.0 - M ajor depressive disorder, recurrent, mild (2) BEATRIZ (generalized anxiety disorder): Code(s): F41.1 - Generalized anxiety disorder Category: Medical (3) ADHD: Comment: Neuropsych eval 2007 Code(s): F90.9 - Attention-deficit hyperactivity disorder, unspecified type Category: Medical Qualifiers: Attention deficit-hyperactivity disorder type: combined inattentive- hyperactive Qualified Code(s): F90.2 - Attention-deficit hyperactivity disorder, combined type (4) Low back pain: Code(s): M54.50 - Low back pain, unspecified Category: Medical Qualifiers: Chronicity: chronic Back pain laterality: right Sciatica presence: without sciatica Qualified Code(s): M54.50 - Low back pain, unspecified; G89.29 - Other chronic pain (5) Pain and swelling of left knee: Code(s): M25.562 - Pain in left knee; M25.462 - Effusion, left knee Plan . Medications: Refilled dexmethylphenidate ER (Focalin XR) Partial Fill upon patient request. 30 mg PO DAILY 90 caps 0RF
[2025-02-20 09:07] VITALS: BP 122/70; PULSE 95; RESP 12; TEMP 36.2; O2SAT 97; BMI 30.2
--- OUTSIDE RECORDS SUMMARY | 2025-02-20 09:14 | XMS_ITS | Clinical Summary ---
Author Organization Patient Business Ser [facility] Address [address] [place] [address] Care Team Providers Care Rivet Flunky Name Role Phone Pineda Sharp MD Primary Care Provider [phone] Allergies No known active allergies Medications meclizine [...] to less than 7yo ,05/26/1996,1995,09/20,1995 Hepatitis B (Jqiszwa-J-Tqpsx , Recombivax HB-Adult) 19yo and older 1995,1995,1995 [...] Vaccine ( season) 2024 Influenza Vaccine (#1) 2025 Hepatitis B Vaccines Completed 1995, 1995, [...] age to complete this topic Meningococcal B Vaccine Aged Out No l onger eligible based on patient's age to complete this topic Pneumococcal Vaccine: Pediatrics (0 to 5 Years) and At-Risk Patients (6 to 49 Years) Aged Out No longer eligible based on patient's age to complete this topic RSV Immunization Patients Under 20 months Aged Out No longer eligible based on patient's age to complete this topic Care Teams Rivet Flunky Relationship Specialty Start Date End Date Pineda Sharp MD [address] [place] [address] PCP - General Internal Medicine 11/22/21
== END 2025-02-20 09:25 | disposition home or self-care (01) ==
LOC: HO.HMCFM 09:02
PROVIDERS: PCP Nurse Practitioner Family; Visit Provider Nurse Practitioner Family
DX: F33.0 Major depressive disorder, recurrent, mild (principal); F41.1 Generalized anxiety disorder; F90.2 Attention-deficit hyperactivity disorder, combined type; M54.50 Low back pain, unspecified; G89.29 Other chronic pain; M25.562 Pain in left knee; M25.462 Effusion, left knee

== ENCOUNTER → 2025-02-20 09:01 | Outpatient (BNVA) | payer OTHER, SELFPAY | PROVIDERS: PCP Nurse Practitioner Family; Visit Provider Nurse Practitioner Family | DX: F41.1 Generalized anxiety disorder (principal); F90.9 Attention-deficit hyperactivity disorder, unspecified type; F33.0 Major depressive disorder, recurrent, mild; F90.2 Attention-deficit hyperactivity disorder, combined type; M54.50 Low back pain, unspecified; G89.29 Other chronic pain; M25.562 Pain in left knee; M25.462 Effusion, left knee | CPT/HCPCS: 99212 ==

== ENCOUNTER 2025-06-29 08:01 | Outpatient (REF) | payer OTHER, SELFPAY ==
[2025-06-29 12:41] LABS: Alanine Aminotransferase 67 U/L (0-40); Albumin Level 5.0 g/dL (3.5-5.0); Alkaline Phosphatase 75 U/L (39-117); Anion Gap 12 (12-20); Aspartate Amino Transferase 34 U/L (5-37); Blood Urea Nitrogen 12 mg/dL (9-16); Calcium 9.8 mg/dL (8.4-10.2); Carbon Dioxide 27 mmol/L (22-29); Chloride 105 mmol/L (96-108); Estimated Glomerular Filt Rate > 60; Potassium 4.1 mmol/L (3.3-5.1); Sodium 140 mmol/L (135-145); Total Protein 7.4 g/dL (6.5-8.0)
== END 2025-06-29 08:02 | disposition home or self-care (01) ==
LOC: HO.WFDLDS 08:01
PROVIDERS: PCP Nurse Practitioner Family; Visit Provider Nurse Practitioner Family
DX: Z00.00 Encounter for general adult medical examination without abnormal findings (principal); F41.1 Generalized anxiety disorder; F90.9 Attention-deficit hyperactivity disorder, unspecified type; M25.561 Pain in right knee; M25.562 Pain in left knee; E66.9 Obesity, unspecified; R74.8 Abnormal levels of other serum enzymes; F90.2 Attention-deficit hyperactivity disorder, combined type; F33.0 Major depressive disorder, recurrent, mild; G89.29 Other chronic pain; R73.01 Impaired fasting glucose; R79.89 Other specified abnormal findings of blood chemistry; Z28.21 Immunization not carried out because of patient refusal; Z68.31 Body mass index [BMI] 31.0-31.9, adult
CPT/HCPCS: 36415; 80053; 83036; 96127; 99395

== ENCOUNTER 2025-06-29 08:01 | Outpatient (AMB) | payer OTHER, SELFPAY ==
--- NOTE | 2025-06-29 08:04 | A.OFFPC_ITS ---
Vital Signs 06/29/25 08:07 Height 5 ft 10 in Weight 222 lb 8 oz BMI 31.9 BP 118/70 Blood Pressure Location Lt brachial Position Sitting Respiration 12 Pulse 85 Pulse Source Pulse Oximeter Temp 97.2 F Temp Source Oral Pulse Oximetry (%) 98 Oxygen Delivery Method Room Air Intake Visit Reasons: 3 months CPE.MED CHK Intake Note: CPE. Patient c/o both knee px Sewer Tapper Required: No Allergies No Known Allergies Allergy (Verified 06/29/25 08:14) Medication List - Last Reconciled 06/29/25 by Ludy Butterfield, [employer]- dexmethylphenidate ER (Focalin XR) 30 mg PO DAILY hydrocortisone 2.5% 1 appl topical BID PRN Tobacco use date assessed: 06/29/25 Dental Screening Dental Screen Date: 06/29/25 Did you have a dental visit in the last 12 months?: Yes Did you have a dental problem in the last 6 months where you did not have access to dental care?: No Was dental information given to patient?: Patient has dentist HPI HPI Comments History of Present Illness Details 30-year-old male with migraine with aura (normal brain MRI 2021) generalized anxiety disorder, major depressive disorder, L3-L4 disc herniation [2019 s.p work injury], ADHD Status post wisdom teeth extraction, right thumb lac repair Hospital: [place] [id number] back injury Social: 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 Bilateral knee pain: - The patient initially had left knee pa in, which has progressively worsened and now also affects his right knee. 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 - Interventions have included stretches, compression sleeves, and an ice water pump brace, but his symptoms have continued to worsen. - His mother had knee surgery and was canseco bsequently found to have a tumor in her bone marrow, which is a source of concern for the patient. Attention-deficit/hyperactivity disorder: - The patient has a history of ADHD, whi ch is managed with Focalin XR 30 mg daily. - He reports the medication is working w ell and obtains it from the [facility] pharmacy without issue. - He is currently due for a refill. Obesity: - The patient has a history of obesity w ith a BMI of 31.9. - He reports a slight weight gain, which he attributes to being unable to go to the gym because of his knee pain. Hyperglycemia and Elevated liver enzymes: - Laboratory studies from March 2024 sh owed a fasting glucose of 114 and an ALT of 51. - Other results at that time included a normal CMP, an LDL of 84, and total cholesterol of 146. Past Medical History - Attention-deficit/hyperactivity disord er, managed with Focalin XR 30 mg daily. - Obesity with a BMI of 31.9. - Elevated fasting glucose (114) and ALT (51) on labs from March 2024. Past Surgical History - No surgeries in the past year. Family History - Mother had knee surgery and was later found to have a tumor in her bone marrow in the contralateral knee; workup is ongoing. Social History - Employment: The patient is soon to fin anuja an [employer] and obtain his [employer] certification, which will result in a pay increase at his current job. - Exercise: He has been unable to go to the gym due to his knee pain. - Sexual History: He denies any concerns or symptoms related to sexually transmitted diseases. Health Maintenance - The patient declined a flu shot at [facility] s visit. - Follow up as needed between scheduled appointments. Review of Systems - Musculoskeletal: Reports worsening yaritza ateral knee pain. - Gastrointestinal: Reports normal bowel function. - Genitourinary: Reports normal urinary function. - Integumentary: Denies any skin concern s, sores, or rashes. - All other systems reviewed and are neg ative. Physical Exam General: Well developed, well nourished, in no acute distress. Appears stated age. Obesity with a BMI of 31.9 noted. Head: Normocephalic, atraumatic. Eyes: Pupils are equal, round and reactive to light and accommodation. Conjunctivae are clear. Scleras nonicteric bilat. Vision grossly normal. Ears: TMs clear AU, EACS WNL Nose: Patent, without discharge. Neck: No carotid bruit bilat. Supple, no adenopathy or thyromegaly. Breast: Edu on SBE Lungs: Clear to auscultation bilaterally. No rales, rhonchi or wheeze noted. Good air flow in all gaspar. Heart: Regular rate and rhythm. No murmurs, click, rubs or gallops are noted. Abdomen: Bowel sounds present in all quadrants. The abdomen is soft, nontender, with no masses or organomegaly noted. No hernias are noted. : Deferred. Reviewed TURNER & recommendations Pulses: Peripheral pulses are equal and palpable bilaterally. Extremities: No clubbing, cyanosis nor edema is noted. FROM bilat knees mild crepitus L, spasm of quad/IT band on R with inversion of the knee. Normal strength. Neurologic: Gait and station normal. Cranial Nerves 2-12 intact. Motor strength grossly symmetrical and intact. No sensory loss. Balance normal. Skin: No rashes, ulcers, or lesions noted. Turgor is good. Skin color is good. Hair and nails are without abnormalities. Psych: Normal eye contact, affect and mood appropriate, and normal interactions. Patient is alert and appropriate to context. Results - Labs (March 2024): Fasting glucose 11 4, ALT 51, LDL 84, Total cholesterol 146. - Imaging: Recent knee X-ray showed hype rmobile knees with a shallow knee gap. Medical Decision Making The patient is a 30-year-old male here for a complete physical exam and evaluation of worsening bilateral knee pain. His knee symptoms have progressed despite conservative measures advised by a walk-in clinic. Given the worsening symptoms, physical exam findings of crepitus in the left knee, and a concerning family history of a maternal bone tumor, further investigation is warranted. A referral to orthopedics for formal evaluation and probable MRI is necessary. His ADHD is stable on Focalin XR, and a refill will be provided. His labs from last year showing elevated glucose and ALT need follow-up to assess for progression, so a repeat CMP and an A1c will be ordered. The patient's slight weight gain is likely secondary to decreased physical activity from his knee pain. Plan 1. Bilateral Knee Pain - An orthopedic referral will be placed for further evaluation, with consideration for an MRI given the worsening symptoms. - The patient was advised that he can re quest to see Dr. Kirk, whom his mother sees. 2. Attention-Deficit/Hyperactivity Disor bryn - Continue Focalin XR 30 mg daily. - A refill will be sent to the [facility] pharm acy. - Follow up in three months for a medica tion check. 3. Hyperglycemia And Elevated Liver Enzy mes - Repeat labs will be ordered, including a Hemoglobin A1c and a comprehensive metabolic panel (CMP), to re-evaluate his blood sugar and liver enzymes. - The results will be communicated to e patient via the online portal. Patient Instructions - Your prescription for Focalin XR will be refilled and sent to the [facility] pharmacy. - You need to have blood work done to re -check your blood sugar and liver function. You can go to the lab today or drop in when you have time. - A referral has been made to an orthope dic specialist for your knee pain. Their office should call you, but feel free to call them to schedule an appointment. You can ask to see Dr. Lema if you wish. - Please schedule a follow-up visit in t hree months for a medication check. Consent Patient was informed and verbally consented to the use of an ambient scribe for clinic note documentation during this visit. An additional 10 minutes was spent addressing the problem(s) noted at todays visit. This includes time spent before the visit reviewing the chart, time spent during the visit, and time spent after the visit on documentation reviewing laboratory results, diagnostic imaging, medications, performing a medically necessary evaluation, counseling on diagnoses, care coordination, ordering appropriate tests, ordering appropriate medications, review of tests performed by other providers, reporting test results with the patient, communication with other healthcare providers. [facility] Medical History (Updated 06/29/25 @ 08:28 by DOMINIK Vu-) Anxiety Depression Extensor carpi ulnaris tendinitis Left wrist pain Low back pain Migraine with aura Sleep difficulties Surgical History History of circumcision [place] teeth extracted Family History (Updated 03/17/24 @ 09:26 by Ana Jolly CMA) Mother Allergies Migraine Asthma Cardiovascular disease Clotting disorder Father Hodgkin disease Hemochromatosis Family/Other No problems noted. Family/Other Homicide Arteriosclerosis Family/Other Accident Family/Other Glaucoma Diabetes mellitus CHF (congestive heart failure) Family/Other Gout Family/Other Hemochromatosis Other FH: mental illness Substance use Social History (Updated 10/13/24 @ 15:09 by SEBASTIEN Mendes) Housing: House Alcohol intake: current Alcohol intake frequency: a few times a month Patient Tobacco Use Status: Never used Tobacco e-Cigarette/Vaping Use: Never Used Second Hand Smoke Exposure: No service: No Current occupational status: employed Current occupation: [employer], right handed Current occupational exposures/hazards: No Cognitive needs: No Hearing needs: No Vision needs: No Questionnaire PHQ-9 Over the last 2 weeks, how often have you been bothered by any of the following problems? 1. Little interest or pleasure in doing things: not at all 2. Feeling down, depressed, or hopeless: not at all 3. Trouble falling or staying asleep, or sleeping too much: not at all 4. Feeling tired or having little energy: not at all 5. Poor appetite or overeating: not at all 6. Feeling bad about yourself - or that you are a failure or have let yourself or your family down: not at all 7. Trouble concentrating on things, such as reading the newspaper or watching television: not at all 8. Moving or speaking so slowly that other people could have noticed. Or the opposite - being so fidgety or restless that you have been moving around a lot more than usual: not at all 9. Thoughts that you would be better off or of hurting yourself in some way: not at all Total score: 0 Depression Screening Interpretation: Negative Depression Screening Done: Yes 51870 - PHQ-9 Billing: Yes Source: Developed by Drs. Jaime Estrella, Luisa Pickett, Wiley Figueroa and colleagues, with an educational ousmane from [employer]. Thrive Questionnaire Date Thrive assessed: 06/29/25 I am a: Patient What is your living situation today?: I have a steady place to live Within the past 12 months, did the food you bought not last and you didn't have the money to get more?: Never true Within the past 12 months, did you worry whether your food would run out before you got money to buy more?: Never true Do you have trouble paying for medicines?: No Do you have trouble getting transportation to medical appointments?: No Do you have trouble paying your heating and electricity bill?: No Do you have trouble taking care of your child, family member or friend?: No Do you have trouble with day-to-day activities such as bathing, preparing meals, shopping, managing finances, etc.?: No Are you currently unemployed and looking for a job?: No Are you interested in more education?: No Please select the resources that you would like help with: None Currently or been in a relationship where the following occur: No concerns re ported THRIVE Score: 0 AUDIT C Alcohol Use Questionnaire (AUDIT-C) 1. How often do you have a drink containing alcohol?: Never 3. How often do you have six or more drinks on one occasion?: Never Total Score: 0 Score Reviewed/Action Taken: Yes BEATRIZ-7 AMB Questionnaire BEATRIZ-7 Date BEATRIZ - 7 assessed: 06/29/25 Feeling nervous, anxious, or on edge: 0 = Not at all Not being able to stop or control worryin = Not at all Worrying too much about different things: 0 = Not at all Trouble relaxin = Not at all Being so restless that it is hard to sit still: 0 = Not at all Becoming easily annoyed or irritable: 0 = Not at all Feeling afraid as if something awful might happen: 0 = Not at all Total BEATRIZ-7 score (0-4 normal; 5-9 mild; 10-14 moderate; 15-21 severe): 0 Source: Developed by Drs. Jaime Estrella, Luisa Pickett, Wiley Figueroa and colleagues, with an educational ousmane from [employer]. BEATRIZ-7 Assessment Billing BEATRIZ-7 Assessment Tool: BEATRIZ-7 Assessment 40189 Physical exam (Primary Care) Vital Signs: Last Vital Signs Temp 97.2 F 06/29/25 08:07 Pulse 85 06/29/25 08:07 Resp 12 06/29/25 08:07 BP 118/70 06/29/25 08:07 Pulse Ox 98 06/29/25 08:07 Oxygen Delivery Method Room Air 06/29/25 08:07 BMI result Body Mass Index 31.9 BMI Assessment/Plan discussion: High BMI High, discussed plan: lifestyle Tobacco/Smoking Status: Tobacco use Status Tobacco use date assessed 06/29/25 06/29/25 08:09 Patient Tobacco Use Status Never used Tobacco 06/29/25 08:09 e-Cigarette/Vaping Use Never Used 06/29/25 08:09 PHQ-9: PHQ-9 Score PHQ-9: Total score 0 06/29/25 08:09 Depression Screening Interpretation: Negative Thrive Assessment: Date of Thrive Assessment Date Thrive assessed 06/29/25 06/29/25 08:09 Currently or been in a relationship where the following occur: No concerns reported Coding Level of Care Code Est Pt Level 2 (81404) Est Pt Prev Care 18-39y(51363) Diagnoses Encounter for general adult medical examination without abnormal findings Z00.00 Obesity (BMI 30-39.9) E66.9 Attention deficit hyperactivity disorder (ADHD), combined type F90.2 Attention deficit-hyperactivity disorder type: combined inattentive- hyperactive Mild episode of recurrent major depressive disorder F33.0 Major depression episode severity: mild BEATRIZ (generalized anxiety disorder) F41.1 Chronic pain of both knees M25.561; M25.562; G89.29 Chronicity: chronic Laboratory exam ordered as part of routine general medical examination Z00.00 Elevated LFTs R79.89 Elevated fasting glucose R73.01 Influenza vaccination declined Z28.21 Additional Codes BEATRIZ-7 Assessment Billing - BEATRIZ-7 Assessment Tool: BEATRIZ-7 Assessment 86648 ([id number]) PHQ-9 - 65005 - PHQ-9 Billing: Yes ([id number]) Assessment & Plan Assessment & Plan (1) Encounter for general adult medical examination without abnormal findings: Onset Date: ~06/29/25 Code(s): Z00.00 - Encounter for general adult medical examination without abnormal findings Category: Medical (2) Obesity (BMI 30-39.9): Code(s): E66.9 - Obesity, unspecified Category: Medical (3) ADHD: Comment: Neuropsych evthomas 2007 Code(s): F90.9 - Attention-deficit hyperactivity disorder, unspecified type Category: Medical Qualifiers: Attention deficit-hyperactivity disorder type: combined inattentive-hyperactive Qualified Code(s): F90.2 - Attention-deficit hyperactivity disorder, combined type (4) MDD (major depressive disorder), recurrent episode: Code(s): F33.9 - Major depressive disorder, recurrent, unspecified Category: Medical Qualifiers: Major depression episode severity: mild Qualified Code(s): F33.0 - Major depressive disorder, recurrent, mild (5) BEATRIZ (generalized anxiety disorder): Code(s): F41.1 - Generalized anxiety disorder Category: Medical (6) Bilateral knee pain: Code(s): M25.561 - Pain in right knee; M25.562 - Pain in left knee Category: Medical Qualifiers: Chronicity: chronic Qualified Code(s): M25.561 - Pain in right knee; M25.562 - Pain in left knee; G89.29 - Other chronic pain (7) Laboratory exam ordered as part of routine general medical examination: Code(s): Z00.00 - Encounter for general adult medical examination without abnormal findings Category: Medical (8) Elevated LFTs: Code(s): R79.89 - Other specified abnormal findings of blood chemistry Category: Medical (9) Elevated fasting glucose: Code(s): R73.01 - Impaired fasting glucose Category: Medical (10) Influenza vaccination declined: Onset Date: ~06/29/25 Code(s): Z28.21 - Immunization not carried out because of patient refusal Category: Medical Plan . Orders: Orders Hemoglobin A1c Today Z00.00 - Encounter for general adult medical examination without abnormal findings Comprehensive Met. Panel Today Z00.00 - Encounter for general adult medical examination without abnormal findings Referrals Orthopedics Referral M25.561 - Pain in right knee, M25.562 - Pain in left knee Medications: Refilled dexmethylphenidate ER (Focalin XR) Partial Fill upon patient request. 30 mg PO DAILY 90 caps 0RF Patient Instructions: Health screenings for men You should visit your health care provider regularly, even if you feel healthy. The purpose of these visits is to: Screen for medical issues Assess your risk for future medical problems Encourage a healthy lifestyle Update vaccinations and other preventive care services Help you get to know your provider in case of an illness Information Even if you feel fine, you should still see your provider for regular checkups. These visits can help you avoid problems in the future. For example, the only way to find out if you have high blood pressure is to have it checked regularly. High blood sugar and high cholesterol level also may not have any symptoms in the early stages. Simple blood tests can check for these conditions. There are specific times when you should see your provider or receive specific health screenings. The [place] Preventive Services Task Force publishes a list of recommended screenings. Below are screening guidelines for men ages 40 to 64. BLOOD PRESSURE SCREENING Have your blood pressure checked at least once every year. Watch for blood pressure screenings in your area. Ask your provider if you can stop in to have your blood pressure checked. Ask your provider if you need your blood pressure checked more often if: You have diabetes, heart disease, kidney problems, or are overweight or have certain other health conditions You have a first-degree relative with high blood pressure You are Black Your blood pressure top number is from 120 to 129 mm Hg, or the bottom number is from 70 to 79 mm Hg If the top number is 130 mm Hg or greater or the bottom number is 80 mm Hg or greater, this is considered stage 1 hypertension. Schedule an appointment with your provider to learn how you can lower your blood pressure. Effects of age on blood pressure CHOLESTEROL SCREENING Cholesterol screening should begin at age 35 for men with no known risk factors for coronary heart disease. Repeat cholesterol screening should take place: Every 5 years for men with normal cholesterol levels More often if changes occur in lifestyle (including weight gain and diet) More often if you have diabetes, heart disease, kidney problems, or certain other conditions COLORECTAL CANCER SCREENING If you are under age 45, talk to your provider about getting screened. You may need to be screened if you have a strong family history of colon cancer or polyps. Screening may also be considered if you have risk factors such as a history of inflammatory bowel disease or polyps. If you are age 45 to 75, you should be screened for colorectal cancer. There are several screening tests available: A stool-based fecal occult blood (gFOBT) or fecal immunochemical test (FIT) every year A stool sDNA test every 1 to 3 years Flexible sigmoidoscopy every 5 years or every 10 years with stool testing FIT done every year CT colonography (virtual colonoscopy) every 5 years Colonoscopy every 10 years You may need a colonoscopy more often if you have risk factors for colorectal cancer, such as: Ulcerative colitis A personal or family history of colorectal cancer A history of growths in your colon called adenomatous polyps DENTAL EXAM Go to the dentist once or twice every year for an exam and cleaning. Your dentist will evaluate if you have a need for more frequent visits. DIABETES SCREENING All adults who do not have risk factors for diabetes should be screened starting at age 35 and repeated every 3 years. If you have other risk factors for diabetes, such as a first degree relative with diabetes, overweight or obesity, high blood pressure, prediabetes, or a history of heart disease, you may be tested more often. If you are overweight and have other risk factors, such as high blood pressure and are planning to become , screening is recommended. EYE EXAM Have an eye exam every 2 to 4 years ages 40 to 54 and every 1 to 3 years ages 55 to 64. Your provider may recommend more frequent eye exams if you have vision problems or glaucoma risk. Have an eye exam that includes an examination of your retina (back of your eye) at least every year if you have diabetes. IMMUNIZATIONS Commonly needed vaccines include: Flu shot: get one every year COVID-19 vaccine: ask your provider what is best for you Tetanus-diphtheria and acellular pertussis (Tdap) vaccine: have as one of your tetanus-diphtheria vaccines if you did not receive it as an adolescent Tetanus-diphtheria: have a booster (or Tdap) every 10 years Varicella vaccine: receive 2 doses if you never had chickenpox or the varicella vaccine and were born in 1979 or after Hepatitis B vaccine: receive 2, 3, or 4 doses, depending on your exact circumstances, if you did not receive these as a child or adolescent, until age 59 Shingles (herpes zoster) vaccine: at or after age 50 Ask your provider if you should receive other immunizations, especially if you have certain medical conditions, such as diabetes or are at increased risk for some diseases such as pneumonia. INFECTIOUS DISEASE SCREENING Screening for hepatitis C: all adults ages 18 to 79 should get a one-time test for hepatitis C. Screening for human immunodeficiency virus (HIV): all people ages 15 to 65 should get a one-time test for HIV. Depending on your lifestyle and medical history, you may need to be screened for infections such as syphilis, chlamydia, and other infections. LUNG CANCER SCREENING You should have an annual screening for lung cancer with low-dose computed tomography (LDCT) if: You are age 50 to 80 years AND You have a 20 pack-year smoking history AND You currently smoke or have quit within the past 15 years OSTEOPOROSIS SCREENING If you are age 50 to 64 and have risk factors for osteoporosis, you should discuss screening with your provider. Risk factors can include long-term steroid use, low body weight, smoking, heavy alcohol use, having a fracture after age 50, or a family history of hip fracture or osteoporosis. Osteoporosis PHYSICAL EXAM All adults should visit their provider from time to time, even if they are healthy. The purpose of these visits is to: Screen for diseases Assess risk of future medical problems Encourage a healthy lifestyle Update vaccinations and other preventive care services Maintain a relationship with a provider in case of an illness Your height, weight, and body mass index (BMI) should be checked at every exam. During your exam, your provider may ask you about: Depression and anxiety Diet and exercise Alcohol and tobacco use Safety, such as use of seat belts and smoke detectors Your medicines and risk for interactions PROSTATE CANCER SCREENING If you're 55 through 69 years old, before having the test, talk to your provider about the pros and cons of having a PSA test. Ask about: Whether screening decreases your chance of dying from prostate cancer. Whether there is any harm from prostate cancer screening, such as side effects from testing or overtreatment of cancer when discovered. Whether you have a higher risk of prostate cancer than others. If you are age 55 or younger, screening is not generally recommended. You should talk with your provider about if you have a higher risk for prostate cancer. Risk factors include: Having a family history of prostate cancer (especially a brother or father) Being If you choose to be tested, the PSA blood test is repeated over time (yearly or less often), though the best frequency is not known. Prostate examinations are no longer routinely done on men with no symptoms. Prostate cancer SKIN EXAM Your provider may check your skin for signs of skin cancer, especially if you're at high risk. People at high risk include those who have had skin cancer before, have close relatives with skin cancer, or have a weakened immune system. TESTICULAR EXAM The [place] Preventive Services Task Force (USPSTF) now recommends against performing testicular self-exams. Doing testicular self-exams has been shown to have little to no benefit.
[2025-06-29 08:07] VITALS: BP 118/70; PULSE 85; RESP 12; TEMP 36.2; O2SAT 98; BMI 31.9
== END 2025-06-29 08:23 | disposition home or self-care (01) ==
LOC: HO.HMCFM 08:02
PROVIDERS: PCP Nurse Practitioner Family; Visit Provider Nurse Practitioner Family
DX: Z00.00 Encounter for general adult medical examination without abnormal findings (principal); E66.9 Obesity, unspecified; Z68.31 Body mass index [BMI] 31.0-31.9, adult; F90.2 Attention-deficit hyperactivity disorder, combined type; F33.0 Major depressive disorder, recurrent, mild; F41.1 Generalized anxiety disorder; M25.561 Pain in right knee; M25.562 Pain in left knee; R74.01 Elevation of levels of liver transaminase levels; R73.01 Impaired fasting glucose; Z28.21 Immunization not carried out because of patient refusal

== ENCOUNTER 2025-08-04 11:30 | Outpatient (REF) | payer OTHER, SELFPAY ==
--- NOTE | ~2025-08-04 | XR_ITS ---
EXAMINATION: X-ray bilateral knees CLINICAL INFORMATION: Bilateral knee pain COMPARISON: None TECHNIQUE: Left knee 3 views. Right knee 3 views. FINDINGS: Left knee: No fracture or dislocation. No significant joint space narrowing. No marginal osteophytes. No osseous erosion. No joint effusion. No abnormal soft tissue calcification. Right knee: No fracture or dislocation. No significant joint space narrowing. No marginal osteophytes. No osseous erosion. No joint effusion. No abnormal soft tissue calcification. XR/XR Knee Gomez 3V IMPRESSION: No acute osseous abnormality. Electronically signed by: Jeremías Suarez MD 08/05/2025 03:55 PM EST
--- OUTSIDE RECORDS SUMMARY | 2025-08-04 12:54 | XMS_ITS | Clinical Summary ---
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 Name Role Phone Pineda Sharp MD Primary Care Provider [phone] Allergies No known active allergies Medications meclizine [...] headaches 07/29/2024 Insomnia 07/29/2024 Depression 07/29/2024 Immunizations Immunization Administration Dates Next Due DTaP (Infanrix) 6wks to less than 7yo ,05/26/1996,1995,09/20,1995 Hepatitis B (Isrbhii-Q-Lnrud , Recombivax HB-Adult) 19yo and older 1995,1995,1995 [...] on file Sexual Orientation Not on file Last Filed Vital Signs Vital Sign Reading [...] 02/04/2017 02/04/2007, 11/21/2000, 05/26/1996, Additional history exists HIV Screening 09/10/2020 Hepatitis C Screening 09/10/2020 Social Influencers of Health Screening 09/10/2020 HPV Vaccines (1 - 3-dose SCDM series) 2022 Depression Screening 08/13/2024 COVID-19 Vaccine ( - 2024- season) 2025 Influenza Vaccine (#1) 2025 RSV Immunization Adult Patients (1 - 1-dose 75+ series) 2070 Hepatitis B Vaccines Completed 1995, 1995, 1995 [...] age to complete this topic Care Teams Burglar Alarm Installer Relationship Specialty Start Date End Date Pineda Sharp MD [address] [place] [id number] PCP - General Internal Medicine 11/22/21
== END 2025-08-04 11:31 | disposition home or self-care (01) ==
LOC: HO.HOSX 11:30
PROVIDERS: Visit Provider Orthopaedic Surgery
DX: S83.242A Other tear of medial meniscus, current injury, left knee, initial encounter (principal); M25.561 Pain in right knee; M25.562 Pain in left knee; G89.29 Other chronic pain
CPT/HCPCS: 73562; 99212

== ENCOUNTER 2025-08-04 14:41 | Outpatient (AMB) | payer OTHER, SELFPAY ==
--- NOTE | 2025-08-04 14:55 | MHC.OFFVIS ---
Vital Signs 08/04/25 14:59 Height 5 ft 10 in Weight 210 lb BMI 30.1 Intake Visit Reasons: Left knee pain and giving way, Right knee pain Intake Note: Beka is a 30 year old male who presents with complaints of progressively worsening left knee pain and giving way. He also has intermittent pain in his right knee. The patient states that his left knee pain and mechanical symptoms have gotten worse over the last 10-12 years. The patient states that his left knee will give out several times per day. He has failed the last 6 weeks of conservative treatment which has included Tylenol, anti-inflammatory medicines, a home exercise program and physical therapy exercises. The patient states that his left knee pain is mostly along the medial and lateral aspects of his knee. Allergies No Known Allergies Allergy (Verified 06/29/25 08:14) Medication List - Last Reconciled 08/04/25 by Amador Peña MD dexmethylphenidate ER (Focalin XR) 30 mg PO DAILY hydrocortisone 2.5% 1 appl topical BID PRN PFSH Medical History (Updated 08/04/25 @ 15:12 by Amador Peña MD) Low back pain Extensor carpi ulnaris tendinitis Left wrist pain Migraine with aura Anxiety Depression Sleep difficulties Surgical History [place] teeth extracted History of circumcision Family History (Updated 03/17/24 @ 09:26 by Ana Jolly CMA) Mother Allergies Migraine Asthma Cardiovascular disease Clotting disorder Father Hodgkin disease Hemochromatosis Family/Other No problems noted. 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 Current occupational exposures/hazards: No Cognitive needs: No Hearing needs: No Vision needs: No Physical Exam Vital Signs: BMI result Body Mass Index 30.1 Extrem Other: Left knee examination shows a minimal effusion, minimal crepitus with range of motion, tenderness along his medial joint line, positive Rayne's test, no instability Results Reviewed Results Reviewed: Standing full weight-bearing x-rays of the patient's bilateral knees show no significant degenerative changes, no acute bony abnormalities Assessment & Plan Assessment & Plan (1) Tear of medial meniscus of left knee: Code(s): S83.242A - Other tear of medial meniscus, current injury, left knee, initial encounter Category: Medical (2) Right knee pain: Code(s): M25.561 - Pain in right knee Plan Mr. Chan presents with progressively worsening left knee pain and mechanical symptoms most likely due to a medial meniscus tear. Thus, I will send the patient for an MRI of his left knee for further evaluation. I will see him back once the MRI is completed to discuss the findings and treatment options. Feel free to call me at any time should questions regarding his orthopedic management arise. Thank you very much for asking me to see this very friendly gentleman. I spent 21 minutes in reviewing the patient's records and imaging studies, seeing the patient and documenting in the medical record. Orders: Orders XR Knee Gomez 3V 08/04/25 G89.29 - Other chronic pain, M25.561 - Pain in right knee, M25.562 - Pain in left knee MR knee LT wo con 08/07/25 S83.242A - Other tear of medial meniscus, current injury, left knee, initial encounter Coding Level of Care Code New Pt Level 3 (93229) Add On Problem Visit Only Diagnoses Tear of medial meniscus of left knee S83.242A Right knee pain M25.561
[2025-08-04 14:59] VITALS: BMI 30.1
== END 2025-08-04 15:13 | disposition home or self-care (01) ==
LOC: HO.HOS 14:41
PROVIDERS: PCP Nurse Practitioner Family; Visit Provider Orthopaedic Surgery
DX: S83.242A Other tear of medial meniscus, current injury, left knee, initial encounter (principal); M25.561 Pain in right knee
CPT/HCPCS: 99213